=== PATIENT | male | born 1945 | race Caucasian/White ===

== ENCOUNTER 2018-07-03 17:18 | Emergency (ER) | payer MEDICARE ==
[2018-07-03 17:33] VITALS: RESP 18
[2018-07-03 17:46] LABS: Glucose,Whole Blood 104 mg/dL (75-99)
--- NOTE | 2018-07-03 17:58 | ED ---
General Adult HPI - General Chief complaint: Recheck/Abnormal Lab/Rx Stated complaint: Hyperglycemia Source: patient, EMS Mode of arrival: EMS Limitations: no limitations - History of Present Illness Initial comments: Dictation was produced using CSDN dictation software. please excuse any grammatical, word or spelling errors. Chief Complaint: 73-year-old male past medical history of insulin- dependent diabetes mellitus presents with hyperglycemia. History of Present Illness: Patient was at home when his came home found him on the ground. EMS was called. Patient had a blood sugar in the 40s. Patient had issues with his insulin pump since yesterday. He states that he checked his sugar which was 400. Then proceeded to inject insulin from a herrera into his pump. Patient has sensation of chills however denies any fever. Patient otherwise has been at baseline prior to this episode. The ROS documented in this emergency department record has been reviewed and confirmed by me. Those systems with pertinent positive or negative responses have been documented in the HPI. All other systems are other negative and/or noncontributory. - Related Data Home Medications Medication Instructions Recorded Confirmed Atorvastatin [Lipitor] 80 mg PO HS 08/20/16 07/03/18 Enalapril Maleate 10 mg PO BID 08/20/16 07/03/18 Insulin Aspart (For Pump) [NovoLOG 0.01 unit SQ-PUMP CONTINUOUS 08/20/16 (For Pump)] Metoprolol Succinate [Toprol XL] 25 mg PO DAILY 08/20/16 07/03/18 Primidone 50 mg PO TID 08/20/16 07/03/18 Verapamil Sr [Isoptin Sr] 180 mg PO DAILY 08/20/16 07/03/18 Aspirin EC [Ecotrin Low Dose] 81 mg PO DAILY 07/03/18 07/03/18 Cholecalciferol (Vitamin D3) 2,000 unit PO DAILY 07/03/18 07/03/18 [Vitamin D3] Furosemide [Lasix] 20 mg PO DAILY PRN 07/03/18 07/03/18 Meloxicam [Mobic] 7.5 mg PO DAILY 07/03/18 07/03/18 Omeprazole [PriLOSEC] 20 mg PO AC-BRKFST 07/03/18 07/03/18 Allergies Allergy/AdvReac Type Severity Reaction Status Date / Time adhesive tape Allergy Unknown Verified 07/03/18 17:52 Review of Systems ROS Statement: Those systems with pertinent positive or pertinent negative responses have been documented in the HPI. ROS Other: All systems not noted in ROS Statement are negative. Past Medical History Past Medical History: Diabetes Mellitus History of Any Multi-Drug Resistant Organisms: None Reported Past Surgical History: Coronary Bypass/CABG Past Psychological History: No Psychological Hx Reported Smoking Status: Never smoker Past Alcohol Use History: None Reported Past Drug Use History: None Reported General Exam - General Exam Comments Initial Comments: PHYSICAL EXAM: General Impression: Alert and oriented x3, not in acute distress HEENT: Normocephalic atraumatic, extra-ocular movements intact, pupils equal and reactive to light bilaterally, mucous membranes moist. Cardiovascular: Heart regular rate and rhythm, S1&S2 audible, no murmurs, rubs or gallops Chest: Lungs clear to auscultation bilaterally, no rhonchi, no wheeze, no rales Abdomen: Bowel sounds present, abdomen soft, non-tender, non-distended, no organomegaly Musculoskeletal: Pulses present and equal in all extremities, no peripheral edema Motor: Power 5/5 bilaterally, no focal deficits noted Neurological: CN II-XII grossly intact, no focal motor or sensory deficits noted Skin: Intact with no visualized rashes Psych: Normal affect and mood Limitations: no limitations Course Vital Signs 07/03/18 07/03/18 07/03/18 17:26 19:12 20:35 Temperature 93.3 F L 97.2 F L 100.6 F H Pulse Rate 73 85 98 Respiratory 18 18 18 Rate Blood Pressure 172/76 182/87 192/86 O2 Sat by Pulse 100 99 97 Oximetry 07/03/18 07/03/18 21:50 21:54 Temperature 99.1 F Pulse Rate 86 Respiratory 18 Rate Blood Pressure 157/72 O2 Sat by Pulse 96 Oximetry Medical Decision Making - Medical Decision Making ED course: 73-year-old male presents with hypoglycemia. EMS reports that his blood sugar is 46. He did receive supplemental glucose. Repeat blood sugar was in the 100s. Vital signs upon arrival shows findings within acceptable limits. There is strong clinical suspicion that patient administered himself too much insulin. Patient does report feeling chills at this time there is some suspicion that he may have an alternate reason for his hyperglycemia.Laboratory evaluation obtained. Leukocytosis of 14.8 likely secondary to stress. Metabolic panel is unremarkable. Patient's blood sugars have been stabilized. Urinalysis unremarkable. Patient given intravenous fluids. X-rays obtained showing no acute processes. Computed tomography scan of the head and C-spine shows no acute processes. Patient's clinical presentation is consistent with excessive NovoLog. He is then observed in emergency department for several hours with stable medical condition. He does have good social situation. He has a glucometer at home. Patient to be discharged. Told not to inject contents of insulin pen into his insulin pump. - Lab Data Result diagrams: 07/03/18 17:32 07/03/18 17:32 Lab Results 07/03/18 07/03/18 07/03/18 Range/Units 17:25 17:32 17:32 WBC 14.8 H (3.8-10.6) k/uL RBC 4.91 (4.30-5.90) m/uL Hgb 13.5 (13.0-17.5) gm/dL Hct 41.2 (39.0-53.0) % MCV 83.9 (80.0-100.0) fL MCH 27.5 (25.0-35.0) pg MCHC 32.8 (31.0-37.0) g/dL RDW 13.5 (11.5-15.5) % Plt Count 326 (150-450) k/uL Neutrophils % 91 % Lymphocytes % 5 % Monocytes % 4 % Eosinophils % 0 % Basophils % 0 % Neutrophils # 13.5 H (1.3-7.7) k/uL Lymphocytes # 0.7 L (1.0-4.8) k/uL Monocytes # 0.5 (0-1.0) k/uL Eosinophils # 0.0 (0-0.7) k/uL Basophils # 0.0 (0-0.2) k/uL Sodium 137 (137-145) mmol/L Potassium 3.8 (3.5-5.1) mmol/L Chloride 102 (98-107) mmol/L Carbon Dioxide 20 L (22-30) mmol/L Anion Gap 15 mmol/L BUN 27 H (9-20) mg/dL Creatinine 0.86 (0.66-1.25) mg/dL Est GFR (CKD-EPI)AfAm >90 (>60 ml/min/1.73 sqM) Est GFR (CKD-EPI)NonAf 87 (>60 ml/min/1.73 sqM) Glucose 98 (74-99) mg/dL POC Glucose (mg/dL) 104 H (75-99) mg/dL POC Glu Warp Knit Operator Charissa Barajas Calcium 9.0 (8.4-10.2) mg/dL Creatine Kinase (55-170) U/L Urine Color Urine Appearance (Clear) Urine pH (5.0-8.0) Ur Specific Hallam (1.001-1.035) Urine Protein (Negative) Urine Glucose (UA) (Negative) Urine Ketones (Negative) Urine Blood (Negative) Urine Nitrite (Negative) Urine Bilirubin (Negative) Urine Urobilinogen (<2.0) mg/dL Ur Leukocyte Esterase (Negative) Urine RBC (0-5) /hpf Urine WBC (0-5) /hpf Hyaline Casts (0-2) /lpf 07/03/18 07/03/18 07/03/18 Range/Units 17:32 18:42 20:31 WBC (3.8-10.6) k/uL RBC (4.30-5.90) m/uL Hgb (13.0-17.5) gm/dL Hct (39.0-53.0) % MCV (80.0-100.0) fL MCH (25.0-35.0) pg MCHC (31.0-37.0) g/dL RDW (11.5-15.5) % Plt Count (150-450) k/uL Neutrophils % % Lymphocytes % % Monocytes % % Eosinophils % % Basophils % % Neutrophils # (1.3-7.7) k/uL Lymphocytes # (1.0-4.8) k/uL Monocytes # (0-1.0) k/uL Eosinophils # (0-0.7) k/uL Basophils # (0-0.2) k/uL Sodium (137-145) mmol/L Potassium (3.5-5.1) mmol/L Chloride (98-107) mmol/L Carbon Dioxide (22-30) mmol/L Anion Gap mmol/L BUN (9-20) mg/dL Creatinine (0.66-1.25) mg/dL Est GFR (CKD-EPI)AfAm (>60 ml/min/1.73 sqM) Est GFR (CKD-EPI)NonAf (>60 ml/min/1.73 sqM) Glucose (74-99) mg/dL POC Glucose (mg/dL) 81 161 H (75-99) mg/dL POC Glu Warp Knit Operator Ruby Clifford Jalissa Calcium (8.4-10.2) mg/dL Creatine Kinase 108 (55-170) U/L Urine Color Urine Appearance (Clear) Urine pH (5.0-8.0) Ur Specific Hallam (1.001-1.035) Urine Protein (Negative) Urine Glucose (UA) (Negative) Urine Ketones (Negative) Urine Blood (Negative) Urine Nitrite (Negative) Urine Bilirubin (Negative) Urine Urobilinogen (<2.0) mg/dL Ur Leukocyte Esterase (Negative) Urine RBC (0-5) /hpf Urine WBC (0-5) /hpf Hyaline Casts (0-2) /lpf 07/03/18 Range/Units 21:19 WBC (3.8-10.6) k/uL RBC (4.30-5.90) m/uL Hgb (13.0-17.5) gm/dL Hct (39.0-53.0) % MCV (80.0-100.0) fL MCH (25.0-35.0) pg MCHC (31.0-37.0) g/dL RDW (11.5-15.5) % Plt Count (150-450) k/uL Neutrophils % % Lymphocytes % % Monocytes % % Eosinophils % % Basophils % % Neutrophils # (1.3-7.7) k/uL Lymphocytes # (1.0-4.8) k/uL Monocytes # (0-1.0) k/uL Eosinophils # (0-0.7) k/uL Basophils # (0-0.2) k/uL Sodium (137-145) mmol/L Potassium (3.5-5.1) mmol/L Chloride (98-107) mmol/L Carbon Dioxide (22-30) mmol/L Anion Gap mmol/L BUN (9-20) mg/dL Creatinine (0.66-1.25) mg/dL Est GFR (CKD-EPI)AfAm (>60 ml/min/1.73 sqM) Est GFR (CKD-EPI)NonAf (>60 ml/min/1.73 sqM) Glucose (74-99) mg/dL POC Glucose (mg/dL) (75-99) mg/dL POC Glu Warp Knit Operator ID Calcium (8.4-10.2) mg/dL Creatine Kinase (55-170) U/L Urine Color Yellow Urine Appearance Clear (Clear) Urine pH 6.0 (5.0-8.0) Ur Specific Hallam 1.010 (1.001-1.035) Urine Protein 2+ H (Negative) Urine Glucose (UA) 3+ H (Negative) Urine Ketones Trace H (Negative) Urine Blood Negative (Negative) Urine Nitrite Negative (Negative) Urine Bilirubin Negative (Negative) Urine Urobilinogen <2.0 (<2.0) mg/dL Ur Leukocyte Esterase Negative (Negative) Urine RBC <1 (0-5) /hpf Urine WBC 1 (0-5) /hpf Hyaline Casts 1 (0-2) /lpf Disposition Clinical Impression: Hypoglycemia Disposition: HOME SELF-CARE Condition: Good Instructions: What is Insulin (ED) Is patient prescribed a controlled substance at d/c from ED?: No Referrals: Jacqueline Manning III, MD [Primary Care Provider] - 1-2 days Time of Disposition: 22:04
[2018-07-03 18:41] LABS: Basophils % (A) 0 %; Eosinophils % (A) 0 %; HCT 41.2 % (39.0-53.0); HGB 13.5 gm/dL (13.0-17.5); Lymphocytes # (A) 0.7 k/uL (1.0-4.8); Lymphocytes % (A) 5 %; MCH 27.5 pg (25.0-35.0); MCHC 32.8 g/dL (31.0-37.0); MCV 83.9 fL (80.0-100.0); Mean Platelet Volume 7.1; Monocytes # (A) 0.5 k/uL (0-1.0); Monocytes % (A) 4 %; Neutrophils # (A) 13.5 k/uL (1.3-7.7); Neutrophils % (A) 91 %; Platelet Count 326 k/uL (150-450); RBC 4.91 m/uL (4.30-5.90); RDW 13.5 % (11.5-15.5); WBC 14.8 k/uL (3.8-10.6)
[2018-07-03 18:43] LABS: Anion Gap 15 mmol/L; Blood Urea Nitrogen 27 mg/dL (9-20); Carbon Dioxide 20 mmol/L (22-30); Chloride 102 mmol/L (98-107); Glucose 98 mg/dL (74-99); Potassium 3.8 mmol/L (3.5-5.1); Sodium 137 mmol/L (137-145)
--- NOTE | 2018-07-03 19:23 | CT ---
EXAMINATION TYPE: CT brain naun newell DATE OF EXAM: 07/03/2018 COMPARISON: None HISTORY: pain headache. Neck pain. CT DLP: 1349.4 mGycm Automated exposure control for dose reduction was used. TECHNIQUE: CT scan of the head and cervical spine are performed without contrast. FINDINGS: There is cerebral cortical atrophy. There is no mass effect nor midline shift. There is n o sign of intracranial hemorrhage. The calvarium is intact. Cervical vertebra have normal alignment. There is mild spurring of the endplates. Facet joints are in tact. There's multilevel hypertrophic facet arthropathy. The skull base is intact. IMPRESSION: Cerebral atrophy. No acute intracranial abnormality. New mild spondylotic changes in the cervical spi ne. No fracture.
[2018-07-03 19:26] LABS: Glucose,Whole Blood 81 mg/dL (75-99)
--- NOTE | 2018-07-03 19:27 | XR ---
EXAMINATION TYPE: XR chest 2V DATE OF EXAM: 07/03/2018 COMPARISON: NONE HISTORY: Hyperglycemia. Chest pain TECHNIQUE: Frontal and lateral views of the chest are obtained. FINDINGS: Heart and mediastinum are normal. Lungs are clear. Diaphragm is normal. There are sternal wires. There is no pleural effusion. Bony thorax appears intact. IMPRESSION: No active cardiopulmonary disease. Normal heart.
[2018-07-03 20:43] LABS: Glucose,Whole Blood 161 mg/dL (75-99)
[2018-07-03 21:34] LABS: Appearance,Urine Clear (Clear); Bilirubin,Urine Negative (Negative); Blood,Urine Negative (Negative); Color,Urine Yellow; Glucose,Urine (UA) 3+ (Negative); Hyaline Casts,Urine 1 /lpf (0-2); Ketones,Urine Trace (Negative); Leukocyte Esterase,Urine Negative (Negative); Nitrite,Urine Negative (Negative); Protein,Urine 2+ (Negative); RBC,Urine <1 /hpf (0-5); Urobilinogen,Urine <2.0 mg/dL (<2.0); WBC,Urine 1 /hpf (0-5)
[2018-07-03 21:52] VITALS: BP 157/72; PULSE 86
[2018-07-03 21:54] VITALS: TEMP 99.1
== END 2018-07-03 22:11 | disposition home or self-care (01) ==
LOC: EC 17:18
DX: E11.649 Type 2 diabetes mellitus with hypoglycemia without coma (principal); D72.829 Elevated white blood cell count, unspecified; Z79.1 Long term (current) use of non-steroidal anti-inflammatories (NSAID); Z79.4 Long term (current) use of insulin; Z79.82 Long term (current) use of aspirin; Z79.899 Other long term (current) drug therapy; Z91.09 Other allergy status, other than to drugs and biological substances
CPT/HCPCS: 36415; 70450; 71046; 72125; 80048; 81001; 82550; 85025; 87086; 93005; 99285

== ENCOUNTER 2019-10-12 07:17 | Day surgery (SDC) | payer MEDICARE ==
[2019-10-08 13:27] VITALS: BMI 25.8
[~2019-10-12 07:17] MED LIST: LACTATED RINGERS 1,000 ML IV SCH; LIDOCAINE 1% 20 ML VIAL (10MG/ML) FOR IV START INTRADERMA PRN
[2019-10-12 07:44] VITALS: TEMP 98
[2019-10-12 07:46] LABS: Glucose,Whole Blood 156 mg/dL (75-99)
[2019-10-12] MEDS ORDERED: PROPOFOL 10 MG/ML 20 ML VIAL IV ONE (08:05)
--- NOTE | 2019-10-12 08:38 | P.PCN ---
Date of Procedure: 10/12/19 Description of Procedure: BRIEF HISTORY: Patient is a 74-year-old pleasant male scheduled for an elective colonoscopy as a part of screening for malignant neoplasm of the colon. Patient reports last colonoscopy was 5 years ago. Denies any change in bowel habits, blood per rectum or abdominal pain. No family history of colon cancer. PROCEDURE PERFORMED: Colonoscopy. PREOPERATIVE DIAGNOSIS: Screening for malignant neoplasm of the colon. ESTIMATED BLOOD LOSS: Minimal. IV sedation per Anesthesia. PROCEDURE: After informed consent was obtained, the patient, was brought into the endoscopy unit. IV sedation was administered by Anesthesia under continuous monitoring. Digital rectal examination was normal. Initially the Olympus CF-190 flexible video colonoscope was then inserted in the rectum, gradually advanced into the cecum without any difficulty. Careful examination was performed as the scope was gradually being withdrawn. Ileocecal valve and the appendiceal orifice were visualized and appeared normal. Prep was excellent. Mucosa of the cecum, ascending colon, transverse colon, descending colon, sigmoid colon, and rectum appeared normal. A few small scattered sigmoid diverticula noted. The colon was somewhat dilated and redundant otherwise normal. Retroflexion was performed in the rectum and no lesions were seen. The patient tolerated the procedure well. IMPRESSION: Normal-appearing colon from rectum to cecum. Mild sigmoid diverticulosis. RECOMMENDATIONS: Findings of this examination were discussed with the patient and his . Okay to resume diet. Okay to resume medications. Patient can continue screening colonoscopies after the age of 76 if medically stable.
[2019-10-12 08:41] VITALS: RESP 16
[2019-10-12 08:51] VITALS: BP 134/65; PULSE 80
== END 2019-10-12 09:09 | disposition home or self-care (01) ==
LOC: ORWHC2ENDO 07:17
PROVIDERS: ATTEND Internal Medicine
DX: Z12.11 Encounter for screening for malignant neoplasm of colon (principal); K57.30 Diverticulosis of large intestine without perforation or abscess without bleeding; Q43.8 Other specified congenital malformations of intestine; K21.9 Gastro-esophageal reflux disease without esophagitis; Z87.891 Personal history of nicotine dependence; I25.10 Atherosclerotic heart disease of native coronary artery without angina pectoris; I10 Essential (primary) hypertension; E11.9 Type 2 diabetes mellitus without complications; G20 Parkinson's disease; E78.5 Hyperlipidemia, unspecified; Z95.1 Presence of aortocoronary bypass graft; Z98.42 Cataract extraction status, left eye; Z98.41 Cataract extraction status, right eye; Z97.2 Presence of dental prosthetic device (complete) (partial); Z79.1 Long term (current) use of non-steroidal anti-inflammatories (NSAID); Z79.82 Long term (current) use of aspirin; Z79.899 Other long term (current) drug therapy; Z91.09 Other allergy status, other than to drugs and biological substances; Z79.4 Long term (current) use of insulin
CPT/HCPCS: J2704; G0121; 45378

== ENCOUNTER → 2021-01-18 | Outpatient (CLI) | payer MEDICARE ==
--- NOTE | 2021-01-18 16:11 | MR ---
EXAMINATION TYPE: MR lumbar spine wo con DATE OF EXAM: 01/18/2021 COMPARISON: Prior lumbar MRI 06/07/2015 HISTORY: LOWER BACK PAIN ABOUT HIP LEVEL, INTO BOTH HIPS AND THIGHS TECHNIQUE: Multiplanar, multisequence images of the lumbar spine were acquired. L1-L2: Posterior disc bulge causes slight anterior mass effect on the thecal sac. No significant spin al stenosis or foraminal encroachment. L2-L3: There is a posterior broad-based disc bulge causing anterior mass effect on the thecal sac. Ci rcumferential extension endplate disc complex is noted. There is moderate spinal stenosis, facet arth ropathy with hypertrophic changes causing posterior lateral mass effect on the thecal sac is noted. T his is progressed in the interval. L3-L4: Posterior broad-based disc bulge is again noted causing slight anterior mass effect on the the vane sac. No significant foraminal encroachment. There is facet arthropathy change. L4-L5: Posterior disc herniation is again noted showing anterior mass effect on the thecal sac, there is some slight improvement, slight reduction in the size of the disc herniation and reduction in the mass effect on the thecal sac. There is facet arthropathy change present. No significant foraminal e ncroachment. Spinal stenosis is similar to prior exam. L5-S1: Normal disc appearance without desiccation. No herniation, protrusion or disc bulging. No ca nal stenosis is present. Foramina are patent bilaterally. Suspect a transitional vertebral body is p resent at L5. There is facet arthropathy change. Lumbar segments are intact. No paraspinal masses are identified. Conus medullaris has a normal appe arance. Lumbar vertebral bodies show stable height, alignment, and bone marrow signal, is multilevel spondylosis, endplate discogenic marrow signal change and Schmorl's node formation. There is a mild spinal curvature as on prior exam. Loss of disc signal is compatible disc desiccation, there is loss of disc height similar to prior exam. IMPRESSION: Degenerative disc disease with disc herniation improving mildly at L4-5 and progressing causing some spinal stenosis at L2-3.
== END ==
LOC: RADMRIMAIN 09:39
PROVIDERS: ATTEND Family Medicine
DX: M51.26 Other intervertebral disc displacement, lumbar region (principal); M48.061 Spinal stenosis, lumbar region without neurogenic claudication; M51.36 Other intervertebral disc degeneration, lumbar region
CPT/HCPCS: 72148

== ENCOUNTER → 2021-03-01 | Outpatient (CLI) | payer MEDICARE ==
--- NOTE | 2021-03-02 07:47 | MR ---
EXAMINATION TYPE: MR naun/betty wo con DATE OF EXAM: 03/01/2021 COMPARISON: None HISTORY: Neck and back pain, BLE radiculopathy x 2 months. CONTRAST: None TECHNIQUE: Multiplanar multiecho imaging on a 3.0 Candi magnet is performed through the cervical spin e. FINDINGS: The craniovertebral junction is normal. Vertebral body alignment is normal. Disc desicca tion is present throughout the cervical spine. Mild narrowing of the disc heights may be present. C7-T1: No focal disc herniation or significant disc bulge is evident. No spinal canal stenosis or n eural foraminal stenosis is present. C6-7: Broad-based disc bulge is present with anterior thecal sac flattening. No cord contact is evide nt. No spinal canal stenosis present. Mild uncovertebral joint hypertrophy is present.. C5-6: Broad-based disc bulge is present with anterior thecal sac contact. No cord contact is evident. No spinal canal stenosis is present. There is some mild uncovertebral joint hypertrophy with mild fo raminal narrowing greater on the left. C4-5: Broad-based disc bulge is moderate anterior thecal sac compression. This may has some mild cord contact. Cord deformity is not evident. No spinal canal stenosis or neural foraminal stenosis is pre sent.. C3-4: Broad-based disc bulge is moderate anterior thecal sac compression. No cord contact or cord def ormity is evident. No spinal canal stenosis is present. Uncovertebral joint hypertrophy has mild righ t foraminal narrowing.. C2-3: No focal disc herniation or significant disc bulge is evident. No spinal canal stenosis or daniela ral foraminal stenosis is present. IMPRESSIONS: 1. Diffuse broad-based disc bulging through the cervical spine. This appears greatest at C3-4 with so me moderate anterior thecal sac impression. No spinal canal stenosis is evident. 2. Uncovertebral joint hypertrophy with mild foraminal narrowing on the left at C5-6 and on the right at C3-4. EXAMINATION TYPE: MR naun/betty wo con DATE OF EXAM: 03/01/2021 COMPARISON: None HISTORY: Neck and back pain, BLE radiculopathy x 2 months. CONTRAST: None TECHNIQUE: Multiplanar, multiecho imaging on a 3.0 Candi magnet is performed through the thoracic spi ne. Spinal cord maintains normal signal through its visualized course. Vertebral body alignment is normal. Vertebral body heights are preserved. Disc heights are preserved. There is a Schmorl's node at T11 superior endplate. Diffuse disc desiccation is present. No spinal canal stenosis is evident. IMPRESSIONS: 1. No spinal canal stenosis.
== END | disposition home or self-care (01) ==
LOC: RADMRIMAIN 11:38
PROVIDERS: ATTEND Orthopaedic Surgery
DX: M54.13 Radiculopathy, cervicothoracic region (principal)
CPT/HCPCS: 72141; 72146

== ENCOUNTER 2021-04-17 07:56 | Day surgery (SDC) | payer MEDICARE ==
[2021-04-12 15:24] VITALS: BMI 25.8
[~2021-04-17 07:56] MED LIST changes: -LIDOCAINE 1% 20 ML VIAL (10MG/ML) FOR IV START INTRADERMA PRN
[2021-04-17 08:23] LABS: Glucose,Whole Blood 150 mg/dL (75-99)
[2021-04-17 08:24] VITALS: TEMP 97
[2021-04-17] MEDS ORDERED: methylPREDNISolone ACETATE 40 MG/ML 1 ML VIAL ONE (08:24)
[2021-04-17] MEDS ORDERED: IOPAMIDOL M200 10 ML VIAL ONE (08:24)
--- NOTE | 2021-04-17 08:44 | P.PCN ---
Date of Procedure: 04/17/21 Procedure(s) Performed: PREOPERATIVE DIAGNOSIS:1- Lumbar radiculopathy . 2-Lumbar spondylosis with lumbar facet arthropathy. 3-lumbar degenerative disc disease POSTOPERATIVE DIAGNOSIS: Same as preoperative diagnoses. PROCEDURE 1. Transforaminal epidural steroid injection under fluoroscopic guidance at Bilaterla L5-S1 level. (Fluoroscopy images stored on file in the radiology Department ) 2. Lumbar epidurogram . ANESTHESIA: Local with 1% lidocaine 4 ml only . EBL: Minimal PROCEDURE INDICATION: The patient with low back pain and radiculopathy symptoms unresponsive to conservative treatment. PROCEDURE DESCRIPTION / TECHNIQUE: The patient was seen and identified in the preoperative area. Risks, benefits, complications, and alternatives were discussed with the patient. The patient agreed to proceed with the procedure and signed the consent. IV was started, and vital signs were stable. Patient was taken to the OR and time out was completed. The patient was placed in the prone position on procedure table and a pillow was placed under the abdomen to reduce lumbar lordosis. The lumbosacral area was prepped and draped in the usual sterile fashion. Critical pause was taken. Vital signs were closely monitored during the procedure. Using oblique fluoroscopy, the chin of the ``Wing dog at right L5-S1 level was identified, and the skin and deeper tissues just below was localized with 1% lidocaine. Subsequently, a 22-gauge 3.5-inch spinal needle was advanced under a tunneled view fluoroscopic guidance just underneath the chin of the ``Wing dog at the right L5-S1 Under lateral fluoroscopy, the needle was then advanced to the posterior border of the interforaminal space. After negative aspiration of CSF and blood and with no paresthesias, 1 mL Isovue 200 contrast dye was injected excellent epidurogram and outlining of the nerve root Subsequently, 3 mL of block solution containing 20 mg Depo-Medrol and 2 mL of 0.9% normal saline PF was injected. Needle was removed and the same procedure was repeated at the left L5-S1 level (s). At the end of the procedure, skin was cleansed, and bandages were applied. COMPLICATIONS:none DISPOSITION / PLANS: The patient was placed in a supine position and transferred to the recovery area in a stable condition for observation. There was no evidence of lower extremity motor or sensory deficit after the procedure. Patient was discharged from the recovery room after meeting discharge criteria. Home discharge instructions were given to the patient by the staff. The patient was reexamined prior to discharge.
[2021-04-17 09:00] VITALS: BP 160/75; PULSE 72; RESP 16
--- NOTE | 2021-04-17 09:24 | FL ---
EXAMINATION TYPE: FL guided pain mgmt statistic DATE OF EXAM: 04/17/2021 HISTORY: Fluoroscopy time 15 seconds of fluoroscopy provided. IMPRESSION: 1. Fluoroscopy time.
== END 2021-04-17 09:14 | disposition home or self-care (01) ==
LOC: ORPAIN 07:56
PROVIDERS: ATTEND Specialist
DX: M51.16 Intervertebral disc disorders with radiculopathy, lumbar region (principal); M47.816 Spondylosis without myelopathy or radiculopathy, lumbar region; M54.5 Low back pain; E11.9 Type 2 diabetes mellitus without complications
CPT/HCPCS: 64483; J1030; Q9966

== ENCOUNTER → 2021-05-07 | Outpatient (CLI) | payer MEDICARE ==
[2021-05-07 12:52] VITALS: BP 193/77; PULSE 75; RESP 16; TEMP 98.1
--- NOTE | 2021-05-07 12:58 | P.PN ---
Subjective Progress Note Date: 05/07/21 This is a follow-up visit for this 76 years old male with a chronic history of severe low back pain with radiation to the lower extremity, they) with lumbar radiculopathy lumbar degenerative disc disease and lumbar spondylosis with lumbar facet arthropathy, recently we have done a transforaminal epidural s teroid injection at L5-S1 bilaterally patient gets excellent pain relief for a few weeks, and his ability to function and move improved significantly, currently is complaining of severe low back pain with radiation to the lower extremity bilaterally he denies any motor or sensory deficit he is able to ambulate, denies any fever or night sweats he denies any change in bowel movement or urination. Denies any motor or sensory deficit Objective - Exam Physical Examinations : -Constitutiona : Cooperative , not in acute distress . -HEENT : nech : supple , no Lymphadenopathy , normal thyroid size . : eyes : no ptosis , no icterus, no photophobia . - neurologic : Cranial nerve II to XII intact , no focal neurological deffecit . -psychatric : alert , oriented X 3 , appropriate affect , intact judgment and insight . -Lymphatic : no Lymphadenopathy . - musculoskeltal : Lumber spine moter stegnth lower extremities ,thigh and legs 5/5 Right side , 5/5 Left side deep tendon reflexes : normal Knee Jerk , normal ankle Jerk lumber facet Loading Test =positive Right , positive Left Range of motion of the lumbar spine Flexion 30 degrees, extension 10 degrees strait leg raising test = positive at 30 degree Fabere test= positive Right , and positive LT . tenderness over the Sacroiliac joint on the Right , and Left sides Assessment and Plan Plan: Assessment and plan=1-lumbar radiculopathy. 2-lumbar degenerative disc disease. 3-lumbar spondylosis with lumbar facet arthrop athy. 4-hypertension, Checked the blood pressure today on the right and once to and in the left arm was 193/77, I explained to the patient and his dangers of ignoring high blood pressure, I explained to him that he needs to take care of it TANESHA patient will follow up with his primary care today , after he leaves the clinic he will follow up with his primary care, also in the future we can schedule patient for repeat transforaminal epidural steroid injection at L5-S1 bilaterally. - PQRS measures = - Patient's medications are documented in the chart. -Tobacco use is negative and counseling.Given. -Patient's has not received pneumococcal vaccine. -Advanced care planning discussed, patient not eligible. -Opiate contract not signed. -Pain positive and follow-up visit/procedure is scheduled. -Patient's blood pressure measured [193/77 ] , and documented in the record ,and patient will follow up with the primary care. -Patient's weight was measured and body mass index [ ] within the normal limits and counseling was done. and patient instructed to follow-up with the primary care physician. -Patient was not identified as an unhealthy alcohol user Time with Patient: Less than 30
== END ==
LOC: PNWHC3 12:29
PROVIDERS: ATTEND Specialist
DX: M47.26 Other spondylosis with radiculopathy, lumbar region (principal); M51.16 Intervertebral disc disorders with radiculopathy, lumbar region; I10 Essential (primary) hypertension; Z91.048 Other nonmedicinal substance allergy status; Z87.891 Personal history of nicotine dependence
CPT/HCPCS: 99211

== ENCOUNTER 2021-05-29 07:27 | Day surgery (SDC) | payer MEDICARE ==
[2021-05-28 11:26] VITALS: BMI 26.2
[2021-05-29 08:15] VITALS: RESP 16; TEMP 97.6
[2021-05-29 08:23] LABS: Glucose,Whole Blood 126 mg/dL (75-99)
[2021-05-29] MEDS ORDERED: LACTATED RINGERS 1,000 ML IV ONE (08:23)
[2021-05-29] MEDS ORDERED: MIDAZOLAM 2 MG/2 ML VIAL ONE (08:43)
[2021-05-29] MEDS ORDERED: fentaNYL (PF) 50 MCG/ML 2 ML AMP ONE (08:43)
[2021-05-29] MEDS ORDERED: DEXAMETHASONE SOD PHOSPHATE 10 MG/ML 1 ML VIAL ONE (08:43)
[2021-05-29] MEDS ORDERED: LIDOCAINE 1% INJ 10MG/ML (20 ML MDV) ONE (08:43)
[2021-05-29] MEDS ORDERED: IOPAMIDOL M200 10 ML VIAL ONE (08:43)
--- NOTE | 2021-05-29 09:09 | P.PCN ---
Date of Procedure: 05/29/21 Surgeon: Junaid Campos Pathology: none sent Condition: stable Disposition: PACU Description of Procedure: PREOPERATIVE DIAGNOSIS: Lumbar radiculopathy POSTOPERATIVE DIAGNOSIS: Lumbar radiculopathy PROCEDURE 1. Transforaminal epidural steroid injection under fluoroscopic guidance at L5- S1 level bilaterally 2. Lumbar epidurogram. SURGEON: Junaid Campos MD ANESTHESIA: Local with 1% lidocaine; IV sedation with Versed and fentanyl. EBL: Minimal PROCEDURE INDICATION: The patient with low back pain and radiculopathy symptoms unresponsive to conservative treatment. PROCEDURE DESCRIPTION / TECHNIQUE: The patient was seen and identified in the preoperative area. Risks, benefits, complications, and alternatives were discussed with the patient. The patient agreed to proceed with the procedure and signed the consent. IV was started, and vital signs were stable. Patient was taken to the OR and time out was completed. The patient was placed in the prone position on procedure table and a pillow was placed under the abdomen to reduce lumbar lordosis. The lumbosacral area was prepped and draped in the usual sterile fashion. Critical pause was taken. Vital signs were closely monitored during the procedure. Conscious sedation was used during the procedure to decrease patients anxiety. The vertebral body of the lumbar vertebra L5 was squared off by tilting the C-arm cephalad then the C-arm was tilted to the right oblique position and the target point was at the 6 o'clock position of the pedicle of L5 then skin and deeper tissues were localized with 1% lidocaine. Subsequently, a 22-gauge 3.5-inch spinal needle was advanced under a tunneled view fluoroscopic guidance just underneath the chin of the Wing dog at the . Under lateral fluoroscopy, the needle was then advanced to the middle of the upper one third of the foramen between( L5-S1). After negative aspiration of CSF and blood and with no paresthesias, 1 mL of omnipaque contrast dye was injected excellent epidurogram and outlining of the L nerve root was identified. Subsequently, 2 mL of block solution containing 5 mg of Decadron and 1.5 mL of Lidocaine 1% PF was injected. The procedure was repeated in the same manner on the left side. Needle was removed intact . At the end of the procedure, skin was cleansed, and bandages were applied. I had some difficulty doing the left side of this procedure due to bone spurs. The patient may have more benefit from an interlaminar epidural steroid injection next time. COMPLICATIONS: None COMMENTS: DISPOSITION / PLANS: The patient was placed in a supine position and transferred to the recovery area in a stable condition for observation. There was no evidence of lower extremity motor or sensory deficit after the procedure. Patient was discharged from the recovery room after meeting discharge criteria. Home discharge instructions were given to the patient by the staff.
[2021-05-29] MEDS ORDERED: IV FLUID CONTINUATION 1,000 ML IV ONE (09:14)
[2021-05-29 09:34] VITALS: BP 148/72; PULSE 74
--- NOTE | 2021-05-29 10:49 | FL ---
Fluoroscopy HISTORY: Pain 24 seconds fluoroscopy time supplied to the referring clinician. 3 intraoperative C-arm images docum ent the procedure. See dictated report from anesthesia.
== END 2021-05-29 09:45 | disposition home or self-care (01) ==
LOC: ORPAIN 07:27
PROVIDERS: ATTEND Anesthesiology
DX: M54.16 Radiculopathy, lumbar region (principal); I10 Essential (primary) hypertension; E11.9 Type 2 diabetes mellitus without complications; I25.10 Atherosclerotic heart disease of native coronary artery without angina pectoris; Z79.4 Long term (current) use of insulin; Z96.41 Presence of insulin pump (external) (internal); Z79.82 Long term (current) use of aspirin; Z91.09 Other allergy status, other than to drugs and biological substances
CPT/HCPCS: 64483; J2250; J1100; J2001; J3010; Q9966; 99152

== ENCOUNTER → 2021-06-27 | Outpatient (CLI) | payer MEDICARE ==
[2021-06-27 12:33] VITALS: BP 181/66; PULSE 67; RESP 18; TEMP 97.9
--- NOTE | 2021-06-27 13:03 | P.PN ---
Subjective Progress Note Date: 06/27/21 This is a follow-up visit for this 76 years old male with a chronic history of severe low back pain with radiation to the lower extremity, he is Diagnosed with lumbar radiculopathy, lumbar degenerative disc disease ,and lumbar spondylosis with lumbar facet arthropathy, previously we have done a transforaminal epidural steroid injection at L5-S1 bilaterally x2 ,patient gets excellent pain relief after the first for a few weeks, and his ability to function and move improved significantly, patient reported that he had no benefit after the second injection , currently is complaining of severe low back pain with radiation to the lower extremity bilaterally he denies any motor or sensory deficit he is able to ambulate, denies any fever or night sweats he denies any change in bowel movement or urination. Denies any motor or sensory deficit Objective - Exam Physical Examinations : -Constitutiona : Cooperative , not in acute distress . -HEENT : nech : supple , no Lymphadenopathy , normal thyroid size . : eyes : no ptosis , no icterus, no photophobia . - neurologic : Cranial nerve II to XII intact , no focal neurological deffecit . -psychatric : alert , oriented X 3 , appropriate affect , intact judgment and insight . -Lymphatic : no Lymphadenopathy . - musculoskeltal : Lumber spine moter stegnth lower extremities ,thigh and legs 5/5 Right side , 5/5 Left side deep tendon reflexes : normal Knee Jerk , normal ankle Jerk lumber facet Loading Test =positive Right , positive Left Range of motion of the lumbar spine Flexion 30 degrees, extension 10 degrees strait leg raising test = positive at 30 degree Fabere test= positive Right , and positive LT . tenderness over the Sacroiliac joint on the Right , and Left sides Assessment and plan=1-lumbar radiculopathy. 2-lumbar degenerative disc disease. 3-lumbar spondylosis with lumbar facet arthropathy. patient could benefit from repeat transforaminal epidural steroid injection at L5-S1 bilaterally. - PQRS measures = - Patient's medications are documented in the chart. -Tobacco use is negative and counseling.Given. -Patient's has not received pneumococcal vaccine. -Advanced care planning discussed, patient not eligible. -Opiate contract not signed. -Pain positive and follow-up visit/procedure is scheduled. -Patient's blood pressure measured [181/66 ] , and documented in the record ,and patient will follow up with the primary care. -Patient's weight was measured and body mass index [26.3 ] above the normal limits and counseling was done. and patient instructed to follow-up with the primary care physician. -Patient was not identified as an unhealthy alcohol user Objective - Vital Signs Vital signs: Vital Signs Temp 97.9 F 06/27/21 12:32 Pulse 67 06/27/21 12:32 Resp 18 06/27/21 12:32 BP 181/66 06/27/21 12:32 Pulse Ox 67 L 06/27/21 12:32
== END ==
LOC: PNWHC3 12:06
PROVIDERS: ATTEND Specialist
DX: M51.16 Intervertebral disc disorders with radiculopathy, lumbar region (principal); M47.26 Other spondylosis with radiculopathy, lumbar region; Z91.048 Other nonmedicinal substance allergy status; Z87.891 Personal history of nicotine dependence
CPT/HCPCS: 99211

== ENCOUNTER 2021-08-09 08:12 | Day surgery (SDC) | payer MEDICARE ==
[2021-08-07 16:16] VITALS: BMI 26.2
[2021-08-09 08:45] VITALS: TEMP 97.5
[2021-08-09] MEDS ORDERED: methylPREDNISolone ACETATE 40 MG/ML 1 ML VIAL ONE (09:19)
[2021-08-09] MEDS ORDERED: IOPAMIDOL M200 10 ML VIAL ONE (09:19)
--- NOTE | 2021-08-09 09:44 | P.PCN ---
Date of Procedure: 08/09/21 Procedure(s) Performed: PREOPERATIVE DIAGNOSIS:1- Lumbar radiculopathy . 2-Lumbar spondylosis with lumbar facet arthropathy. 3-lumbar degenerative disc disease POSTOPERATIVE DIAGNOSIS: Same as preoperative diagnoses. PROCEDURE 1. Transforaminal epidural steroid injection under fluoroscopic guidance at [place] L5-S1 level. (Fluoroscopy images stored on file in the radiology Department ) 2. Lumbar epidurogram . ANESTHESIA: Local with 1% lidocaine 4 ml only . EBL: Minimal PROCEDURE INDICATION: The patient with low back pain and radiculopathy symptoms unresponsive to conservative treatment. PROCEDURE DESCRIPTION / TECHNIQUE: The patient was seen and identified in the preoperative area. Risks, benefits, complications, and alternatives were discussed with the patient. The patient agreed to proceed with the procedure and signed the consent. IV was started, and vital signs were stable. Patient was taken to the OR and time out was completed. The patient was placed in the prone position on procedure table and a pillow was placed under the abdomen to reduce lumbar lordosis. The lumbosacral area was prepped and draped in the usual sterile fashion. Critical pause was taken. Vital signs were closely monitored during the procedure. Using oblique fluoroscopy, the chin of the ``Wing dog at right L5-S1 level was identified, and the skin and deeper tissues just below was localized with 1% lidocaine. Subsequently, a 22-gauge 3.5-inch spinal needle was advanced under a tunneled view fluoroscopic guidance just underneath the chin of the ``Wing dog at the right L5-S1 Under lateral fluoroscopy, the needle was then advanced to the posterior border of the interforaminal space. After negative aspiration of CSF and blood and with no paresthesias, 1 mL Isovue 200 contrast dye was injected excellent epidurogram and outlining of the nerve root Subsequently, 3 mL of block solution containing 20 mg Depo-Medrol and 2 mL of 0.9% normal saline PF was injected. Needle was removed and the same procedure was repeated at the left L5-S1 level. At the end of the procedure, skin was cleansed, and bandages were applied. COMPLICATIONS:none DISPOSITION / PLANS: The patient was placed in a supine position and transferred to the recovery area in a stable condition for observation. There was no evidence of lower extremity motor or sensory deficit after the procedure. Patient was discharged from the recovery room after meeting discharge criteria. Home discharge instructions were given to the patient by the staff. The patient was reexamined prior to discharge.
[2021-08-09 09:51] VITALS: PULSE 82; RESP 16
[2021-08-09 09:58] VITALS: BP 147/69
[2021-08-09] MEDS ORDERED: LACTATED RINGERS 1,000 ML IV SCH (10:08)
--- NOTE | 2021-08-09 10:20 | FL ---
Fluoroscopy History: TRANSFORAMINAL STEROID INJ L5 KRISTIN TRANSFORAMINAL. FL TIME 8 SECS
== END 2021-08-09 10:16 | disposition home or self-care (01) ==
LOC: ORPAIN 08:12
PROVIDERS: ATTEND Specialist
DX: M47.26 Other spondylosis with radiculopathy, lumbar region (principal); M51.16 Intervertebral disc disorders with radiculopathy, lumbar region
CPT/HCPCS: 64483; J1030; Q9966

== ENCOUNTER 2023-03-11 10:20 | Day surgery (SDC) | payer MEDICARE ==
[~2023-03-11 10:20] MED LIST changes: +ACETAMINOPHEN TAB 500 MG TAB PO PRN; +DEXAMETHASONE SOD PHOSPHATE 4 MG/ML 1 ML VIAL IV ONE; +HEPARIN SODIUM,PORCINE/PF 5,000 UNIT/0.5 ML SYRINGE SQ PRN; +ONDANSETRON 4 MG/2 ML VIAL IVP ONE; +fentaNYL (PF) 50 MCG/ML 2 ML AMP IV PRN
[2023-03-11 11:06] LABS: Glucose,Whole Blood 166 mg/dL (70-110)
--- NOTE | 2023-03-11 11:13 | P.GSHP ---
History of Present Illness H&P Date: 03/11/23 Chief Complaint: Incarcerated Incisional hernia 77-year-old male here today for elective repair incisional hernia. Feels a bump there. Increasing in size. Painful at times. Past Medical History Past Medical History: Coronary Artery Disease (CAD), Diabetes Mellitus, GERD/Reflux, Hearing Disorder / Deafness, Hypertension, Myocardial Infarction (MD), Osteoarthritis (OA), Sleep Apnea/CPAP/BIPAP Additional Past Medical History / Comment(s): Parkinsons, MD X2, insulin pump, not using CPAP, irregular bowel movements, Last Myocardial Infarction Date:: 1992 History of Any Multi-Drug Resistant Organisms: None Reported Past Surgical History: Appendectomy, Coronary Bypass/CABG, Heart Catheterization, Tonsillectomy Additional Past Surgical History / Comment(s): CABG 1992, bilateral cataracts, bilateral laser eye surgery, pain clinic procedures. Past Anesthesia/Blood Transfusion Reactions: No Reported Reaction Smoking Status: Former smoker - Past Family History Brother(s) Family Medical History: Cancer Medications and Allergies Home Medications Medication Instructions Recorded Confirmed Type Atorvastatin [Lipitor] 80 mg PO DAILY 08/20/16 03/11/23 History Insulin Aspart (For Pump) [NovoLOG 1 applicate SQ-PUMP CONTINUOUS 08/20/16 03/11/23 History (For Pump)] Metoprolol Succinate [Toprol XL] 25 mg PO DAILY 08/20/16 03/11/23 History Primidone 50 mg PO TID 08/20/16 03/11/23 History Verapamil Sr [Isoptin Sr] 180 mg PO DAILY 08/20/16 03/11/23 History Aspirin EC [Ecotrin Low Dose] 81 mg PO DAILY 07/03/18 03/05/23 History Cholecalciferol (Vitamin D3) 2,000 units PO DAILY 07/03/18 03/11/23 History [Vitamin D3] Omeprazole [PriLOSEC] 20 mg PO DAILY 07/03/18 03/11/23 History Carbidopa/Levodopa [Sinemet 10-100 1 each PO TID 10/08/19 03/11/23 History mg] Cannabidiol (Cbd) [Epidiolex] 1 dose PO QAM 04/12/21 03/11/23 History hydroCHLOROthiazide 25 mg PO QAM 04/12/21 03/11/23 History Enalapril Maleate [Vasotec] 20 mg PO BID 05/28/21 03/11/23 History L.acidoph,Paracasei, B.lactis 1 each PO DAILY 06/25/21 03/11/23 History [Probiotic] Calcium(Unknown) 1 tab PO DAILY 03/05/23 03/11/23 History Magnesium (Unknown) 1 tab PO DAILY 03/05/23 03/11/23 History Vit C (Unknown) 1 tab PO DAILY 03/05/23 03/11/23 History Allergies Allergy/AdvReac Type Severity Reaction Status Date / Time adhesive tape Allergy peels skin Verified 03/05/23 13:41 off Surgical - Exam Vital Signs Temp Pulse Resp BP Pulse Ox 98 F 87 20 148/69 98 03/11/23 10:53 03/11/23 10:53 03/11/23 10:53 03/11/23 10:53 03/11/23 10:53 Physical exam: General: Well-developed, well-nourished HEENT: Normocephalic, sclerae nonicteric Abdomen: Nontender, nondistended, previous sternotomy scar, small incarcerated hernia at lower aspect of incision Extremities: No edema Neuro: Alert and oriented Results - Labs Abnormal Lab Results - Last 24 Hours (Table) 03/11/23 Range/Units 11:03 POC Glucose (mg/dL) 166 H (70-110) mg/dL Assessment and Plan (1) Incarcerated incisional hernia Narrative/Plan: 77-year-old male with incarcerated incisional hernia. Open repair with mesh at this time. Risks of bleeding, infection, recurrence, bladder and bowel injury, numbness, nerve injury were discussed with the patient. The patient understands and wishes to proceed. Current Visit: Yes Status: Acute Code(s): K43.0 - INCISIONAL HERNIA WITH OBSTRUCTION, WITHOUT GANGRENE SNOMED Code(s): 400187370
[2023-03-11 11:40] LABS: Basophils % (A) 0 %; Eosinophils # (A) 0.2 k/uL (0-0.7); Eosinophils % (A) 3 %; HCT 36.2 % (39.0-53.0); HGB 12.2 gm/dL (13.0-17.5); Lymphocytes # (A) 1.2 k/uL (1.0-4.8); Lymphocytes % (A) 15 %; MCH 28.3 pg (25.0-35.0); MCHC 33.6 g/dL (31.0-37.0); MCV 84.2 fL (80.0-100.0); Mean Platelet Volume 7.9; Monocytes # (A) 0.5 k/uL (0-1.0); Monocytes % (A) 6 %; Neutrophils # (A) 5.9 k/uL (1.3-7.7); Neutrophils % (A) 73 %; Platelet Count 327 k/uL (150-450); RDW 13.9 % (11.5-15.5); WBC 8.1 k/uL (3.8-10.6)
[2023-03-11] MEDS ORDERED: LIDOCAINE 2% INJ 20 MG/ML (2 ML VIAL) ONE (12:01)
[2023-03-11] MEDS ORDERED: BUPIVACAINE (PF) 0.25% 30 ML VIAL SQ ONE (12:01)
[2023-03-11] MEDS ORDERED: MIDAZOLAM 2 MG/2 ML VIAL ONE (12:01)
[2023-03-11] MEDS ORDERED: ROCURONIUM 10 MG/ML (5 ML VIAL) IV ONE (12:01)
[2023-03-11] MEDS ORDERED: GLYCOPYRROLATE 0.2 MG/ML 2 ML VIAL ONE (12:01)
[2023-03-11] MEDS ORDERED: PROPOFOL 10 MG/ML 20 ML VIAL IV ONE (12:01)
[2023-03-11] MEDS ORDERED: fentaNYL (PF) 50 MCG/ML 2 ML AMP ONE (12:01)
[2023-03-11] MEDS ORDERED: NEOSTIGMINE 1 MG/ML 10 ML VIAL ONE (12:01)
[2023-03-11] MEDS ORDERED: KETOROLAC 15 MG/ML 1 ML VIAL ONE (12:01)
[2023-03-11] MEDS ORDERED: LACTATED RINGERS 1,000 ML IV ONE (12:56)
[2023-03-11 13:18] VITALS: RESP 16; TEMP 97
[2023-03-11] MEDS ORDERED: traMADol 50 MG TAB PO STA (13:26)
[2023-03-11] MEDS ORDERED: ACETAMINOPHEN TAB 325 MG TAB PO SCH (13:30)
--- NOTE | 2023-03-11 13:30 | P.OP ---
Date of Procedure: 03/11/23 Procedure(s) Performed: PREOPERATIVE DIAGNOSIS: Incarcerated incisional hernia POSTOPERATIVE DIAGNOSIS: Same PROCEDURE: Open repair incarcerated incisional hernia with mesh SURGEON: Dr. Bird ANESTHESIA: General OPERATIVE PROCEDURE DETAILS: Patient placed on the operating table in the supine position. Abdomen was prepped and draped in usual sterile fashion. The previous incision was re-incised and lengthened inferiorly. This was present in the epigastric region. Dissection through the subcutaneous tissues took place using electrocautery. A single incarcerated hernia was identified. The hernia sac was carefully dissected down to the level of the fascia where it was excised. The patient had a single defect measuring 1.5 x 1 cm. The 4.3 cm ventral X mesh was placed beneath the fascia and sutured to the fascia using trans-fascial 0 Ethibond sutures. Following that the midline fascia was r eapproximated horizontally using interrupted mattress 0 Ethibond sutures. The subcutaneous tissues were closed using 3-0 Vicryl sutures. The skin was closed using running 4-0 Monocryl suture. Sterile dressings were applied. HERNIA CHARACTERISTICS: Length: 1.5 cm Width: 1 cm Type: Incisional incarcerated TYPE OF MESH USED: 4.3 cm ventral X LOCATION OF MESH: Sub-lay FIXATION: Trans-fascial 0 Ethibond PREOPERATIVE DISCUSSION ON SMOKING CESSASTION: Yes PREOPERATIVE DISCUSSION ON MORBID OBESITY: Yes PREOPERATIVE DISCUSSION ON APPROPRIATE USE OF NARCOTIC USE: Yes PREOPERATIVE EDUCATION: Multi Modal, Smoking Cessation and Weight Loss with BMI over 35. DISPOSITION: Stable to recovery room
[2023-03-11] MEDS ORDERED: traMADol 50 MG TAB PO ONE (14:08)
[2023-03-11 15:04] VITALS: BP 169/69; PULSE 59
[2023-03-11] MEDS ORDERED: IBUPROFEN 600 MG TAB PO SCH (16:30)
== END 2023-03-11 16:03 | disposition home or self-care (01) ==
LOC: OR 10:20
PROVIDERS: ATTEND Surgery
DX: K43.0 Incisional hernia with obstruction, without gangrene (principal); I25.10 Atherosclerotic heart disease of native coronary artery without angina pectoris; E11.9 Type 2 diabetes mellitus without complications; K21.9 Gastro-esophageal reflux disease without esophagitis; H91.90 Unspecified hearing loss, unspecified ear; I10 Essential (primary) hypertension; I25.2 Old myocardial infarction; M19.90 Unspecified osteoarthritis, unspecified site; G47.33 Obstructive sleep apnea (adult) (pediatric); G20 Parkinson's disease; Z90.89 Acquired absence of other organs; Z90.49 Acquired absence of other specified parts of digestive tract; Z95.5 Presence of coronary angioplasty implant and graft; Z95.1 Presence of aortocoronary bypass graft; Z98.890 Other specified postprocedural states; Z98.41 Cataract extraction status, right eye; Z98.42 Cataract extraction status, left eye; Z87.891 Personal history of nicotine dependence; Z79.4 Long term (current) use of insulin; Z79.82 Long term (current) use of aspirin; Z79.899 Other long term (current) drug therapy; Z91.048 Other nonmedicinal substance allergy status
CPT/HCPCS: 84132; 85025; 88302; 49594; C1781; J2250; J1100; J2710; J0690; J2405; J3010; J1885; J2704; J1644; J2001

== ENCOUNTER 2023-07-01 05:40 | Day surgery (SDC) | payer MEDICARE ==
[2023-06-23 13:52] VITALS: BMI 24.3
[2023-07-01] MEDS ORDERED: LACTATED RINGERS 1,000 ML IV ONE (06:40)
[2023-07-01 06:46] LABS: Glucose,Whole Blood 192 mg/dL (70-110)
[2023-07-01 07:16] VITALS: TEMP 98
[2023-07-01] MEDS ORDERED: PROPOFOL 10 MG/ML 20 ML VIAL IV ONE (07:19)
[2023-07-01] MEDS ORDERED: LIDOCAINE 2% INJ 20 MG/ML (2 ML VIAL) ONE (07:19)
[2023-07-01] MEDS ORDERED: BENZOCAINE SPRAY 1 CAN TOPICAL ONE (07:20)
[2023-07-01 07:27] LABS: African American GFR (CKD) 49 (>60 ml/min/1.73 sqM); Anion Gap 9 mmol/L; Blood Urea Nitrogen 40 mg/dL (9-20); Calcium 8.7 mg/dL (8.4-10.2); Carbon Dioxide 24 mmol/L (22-30); Chloride 95 mmol/L (98-107); Glucose 166 mg/dL (74-99); Non-African American GFR(CKD) 42 (>60 ml/min/1.73 sqM); Potassium 5.6 mmol/L (3.5-5.1); Sodium 128 mmol/L (137-145)
--- NOTE | 2023-07-01 07:42 | P.PCN ---
Date of Procedure: 07/01/23 Description of Procedure: Indication: Atrial fibrillation Procedure Description: After explaining the procedure to the patient, it's risk and complications, blood pressure, heart rate and O2 saturation were monitored. The throat was sprayed with Cetacaine. Patient received sedation per anesthesia department. The probe was introduced into the esophagus without difficulty. Images were obtained. Following that, the probe was removed. There was no immediate complication. Findings: Left atria size is dilated, left atrial appendage is normal. Left ventricular systolic function is moderately impaired with global hypokinesis, ejection fraction 35-40%. The mitral valve appears to be normal. The aortic valve is bicuspid valve, by planimetry the aortic valve area is 1 cm. The tricuspid valve is normal. Descending thoracic aorta is normal. No pericardial effusion was noted. Contrast bubble study revealed no shunting across the intra-atrial septum Doppler: Pulse wave and color Doppler were obtained, and revealed moderate mitral with [id number] aortic regurgitation and tricuspid regurgitation. The mean gradient across the aortic valve is 10 mmHg. There was no shunting across the intra-atrial septum. Conclusion: 1. Dilated left atrium with normal appearance of the left atrial appendage 2. Moderately impaired left ventricle systolic function 3. Bicuspid aortic valve with a valve area of 1 cm and a mean gradient of 10 mmHg with mild to moderate aortic regurgitation. The patient may have low gradient low output aortic stenosis 4. Moderate mitral regurgitation 5. And [id number] tricuspid regurgitation Cardioversion: After performing transesophageal echocardiogram and obtaining sedated state a synchronized biphasic cardioversion using 150 J was performed with pentecostal of sinus mechanism, there was no immediate complications.
[2023-07-01] MEDS ORDERED: SODIUM CHLORIDE 0.9% 1,000 ML IV SCH (07:45)
[2023-07-01] MEDS ORDERED: Insulin Aspart (For Pump) 100 UNIT/ML VIAL SQ-PUMP SCH (07:45)
[2023-07-01 08:40] VITALS: RESP 14
[2023-07-01 08:56] VITALS: PULSE 88
[2023-07-01] MEDS ORDERED: FUROSEMIDE 20 MG TAB PO SCH (09:00)
[2023-07-01] MEDS ORDERED: METOPROLOL SUCCINATE (ER) 25 MG TAB.ER.24H PO SCH (09:00)
[2023-07-01] MEDS ORDERED: APIXABAN 5 MG TAB PO SCH (09:00)
[2023-07-01] MEDS ORDERED: VERAPAMIL SR 180 MG TABLET.ER PO SCH (09:00)
[2023-07-01] MEDS ORDERED: hydroCHLOROthiazide 25 MG TAB PO SCH (09:00)
[2023-07-01] MEDS ORDERED: NON FORMULARY DRUG (Magnesium [Magnesium] 250 MG Tablet) PO SCH (09:00)
[2023-07-01] MEDS ORDERED: NON FORMULARY DRUG (Cholecalciferol (Vitamin D3) [Vitamin D3] 2,000 UNIT Capsule) PO SCH (09:00)
[2023-07-01] MEDS ORDERED: NON FORMULARY DRUG (Calcium Carbonate [Calcium] 600 MG Tablet) PO SCH (09:00)
[2023-07-01] MEDS ORDERED: NON FORMULARY DRUG (Omeprazole 20 MG Capsule.Dr) PO SCH (09:00)
[2023-07-01] MEDS ORDERED: NON FORMULARY DRUG (Aspirin Ec 81 MG Tablet.Dr) PO SCH (09:00)
[2023-07-01] MEDS ORDERED: PRIMIDONE 50 MG TAB PO SCH (09:00)
[2023-07-01] MEDS ORDERED: ENALAPRIL MALEATE 20 MG PO SCH (09:00)
[2023-07-01] MEDS ORDERED: CARBIDOPA-LEVODOPA 10-100 MG 1 EACH TAB PO SCH (09:00)
[2023-07-01 09:09] VITALS: BP 141/83
[2023-07-01] MEDS ORDERED: hydrALAZINE HCL 50 MG TAB PO SCH (17:30)
[2023-07-01] MEDS ORDERED: ATORVASTATIN 80 MG TAB PO SCH (21:00)
== END 2023-07-01 09:27 | disposition home or self-care (01) ==
LOC: OR 05:40
PROVIDERS: ATTEND Internal Medicine Interventional Cardiology
DX: I34.0 Nonrheumatic mitral (valve) insufficiency (principal); I36.1 Nonrheumatic tricuspid (valve) insufficiency; I35.1 Nonrheumatic aortic (valve) insufficiency; I51.7 Cardiomegaly; E78.2 Mixed hyperlipidemia; I10 Essential (primary) hypertension; I25.10 Atherosclerotic heart disease of native coronary artery without angina pectoris; G20 Parkinson's disease; K21.9 Gastro-esophageal reflux disease without esophagitis; Z87.891 Personal history of nicotine dependence; Z95.1 Presence of aortocoronary bypass graft; E10.9 Type 1 diabetes mellitus without complications; N18.9 Chronic kidney disease, unspecified; Z79.899 Other long term (current) drug therapy; Z98.890 Other specified postprocedural states
CPT/HCPCS: 93312; 93320; 93325; 92960; 80048; J2704; J2001

== ENCOUNTER 2023-12-01 18:05 | Inpatient (IN) | payer MEDICARE ==
[2023-12-01] MEDS ORDERED: SODIUM CHLORIDE 0.9% 1,000 ML IV STA (19:08)
--- NOTE | 2023-12-01 19:09 | ED ---
Recheck HPI - General Chief Complaint: Urogenital Stated Complaint: Bladder issues-sent by Dr Alexander Seen by Provider: 12/01/23 18:15 Source: patient, RN notes reviewed, old records reviewed Mode of arrival: ambulatory Limitations: no limitations - History of Present Illness Initial Comments: This is a 78-year-old male to the emergency room today for evaluation patient was sent in by his primary care for evaluation regarding significant hydronephrosis secondary to likely bladder outlet obstruction, concern for increasing renal failure. Patient relatively is without complaint but he has been having difficulty with urination and did have an outpatient test showing obstruction MD Complaint: abnormal lab, other (Inability urinate with urinary retention) Returns Today for: persistent/worsening pain related to initial visit Symptoms Since Prior Visit: no new symptoms Associated Symptoms: none Treatments Prior to Arrival: other (0) - Related Data Home Medications Medication Instructions Recorded Confirmed Atorvastatin [Lipitor] 80 mg PO HS 08/20/16 12/01/23 Insulin Aspart (For Pump) [NovoLOG 0.01 units SQ-PUMP CONTINUOUS 08/20/16 12/01/23 (For Pump)] Metoprolol Succinate [Toprol XL] 25 mg PO DAILY 08/20/16 12/01/23 Primidone 50 mg PO TID 08/20/16 12/01/23 Aspirin EC [Ecotrin Low Dose] 81 mg PO DAILY 07/03/18 12/01/23 Cholecalciferol (Vitamin D3) 50 mcg PO DAILY 07/03/18 12/01/23 [Vitamin D3] Omeprazole [PriLOSEC] 20 mg PO DAILY 07/03/18 12/01/23 Enalapril Maleate [Vasotec] 20 mg PO BID 05/28/21 12/01/23 Apixaban [Eliquis] 5 mg PO BID 06/23/23 12/01/23 Ascorbic Acid [Vitamin C] 1,000 mg PO DAILY 06/23/23 12/01/23 Carbidopa-Levodopa 10-100 mg 1 tab PO TID 06/23/23 12/01/23 [Sinemet 10-100 mg] hydrALAZINE HCL 50 mg PO BID-W/MEALS 06/23/23 12/01/23 Furosemide [Lasix] 20 mg PO DAILY PRN 08/04/23 12/01/23 hydroCHLOROthiazide 25 mg PO DAILY 08/04/23 12/01/23 Amiodarone [Cordarone] 200 mg PO DAILY 12/01/23 12/01/23 Previous Rx's Medication Instructions Recorded Ferrous Sulfate [Feosol] 325 mg PO DAILY #30 tab 12/03/23 Tamsulosin [Flomax] 0.4 mg PO AC-BRKFST #30 cap 12/03/23 Allergies Allergy/AdvReac Type Severity Reaction Status Date / Time adhesive tape Allergy peels skin Verified 12/01/23 21:31 off Review of Systems ROS Statement: Those systems with pertinent positive or pertinent negative responses have been documented in the HPI. ROS Other: All systems not noted in ROS Statement are negative. Past Medical History Past Medical History: Atrial Fibrillation, Coronary Artery Disease (CAD), Diabetes Mellitus, GERD/Reflux, Hearing Disorder / Deafness, Hypertension, Myocardial Infarction ([place]), Sleep Apnea/CPAP/BIPAP Additional Past Medical History / Comment(s): Parkinsons, [place] X2, insulin pump, CPAP Last Myocardial Infarction Date:: 1992 History of Any Multi-Drug Resistant Organisms: None Reported Past Surgical History: Appendectomy, Coronary Bypass/CABG, Heart Catheterization, Hernia Repair, Tonsillectomy Additional Past Surgical History / Comment(s): CABG 1992, bilateral cataracts, bilateral laser eye surgery, pain clinic procedures. Past Anesthesia/Blood Transfusion Reactions: No Reported Reaction Past Psychological History: No Psychological Hx Reported Smoking Status: Former smoker Past Alcohol Use History: None Reported Past Drug Use History: None Reported - Past Family History Brother(s) Family Medical History: Cancer General Exam Limitations: no limitations General appearance: alert, in no apparent distress, anxious Head exam: Present: atraumatic, normocephalic, normal inspection Eye exam: Present: normal appearance, PERRL, EOMI. Absent: scleral icterus, conjunctival injection, periorbital swelling ENT exam: Present: normal exam, mucous membranes moist Neck exam: Present: normal inspection. Absent: tenderness, meningismus, lymphadenopathy Respiratory exam: Present: normal lung sounds bilaterally. Absent: respiratory distress, wheezes, rales, rhonchi, stridor Cardiovascular Exam: Present: regular rate, normal rhythm, normal heart sounds. Absent: systolic murmur, diastolic murmur, rubs, gallop, clicks GI/Abdominal exam: Present: soft, normal bowel sounds. Absent: distended, tenderness, guarding, rebound, rigid Extremities exam: Present: normal inspection, full ROM, normal capillary refill. Absent: tenderness, pedal edema, joint swelling, calf tenderness Back exam: Present: normal inspection Neurological exam: Present: alert, oriented X3, CN II-XII intact Psychiatric exam: Present: normal affect, normal mood Skin exam: Present: warm, dry, intact, normal color. Absent: rash Course Vital Signs 12/01/23 12/02/23 12/02/23 18:18 06:46 08:09 Temperature 97.6 F 99.7 F H Pulse Rate 67 76 70 Pulse Rate [ Pulse Oximetery ] Respiratory 16 16 18 Rate Blood Pressure 149/68 175/73 175/75 Blood Pressure [Right Arm] O2 Sat by Pulse 98 97 99 Oximetry 12/02/23 12/02/23 12/02/23 11:28 13:59 14:24 Temperature 97.9 F 98.1 F 98.4 F Pulse Rate 60 61 Pulse Rate [ 74 Pulse Oximetery ] Respiratory 18 16 16 Rate Blood Pressure 171/78 147/64 Blood Pressure 175/82 [Right Arm] O2 Sat by Pulse 94 L 100 99 Oximetry - Reevaluation(s) Reevaluation #1: 12/01/23 23:45 Medical records reviewed Reevaluation #2: 12/01/23 23:45 Patient symptoms are unchanged 12/01/23 23:45 Improve with Davis catheter placement Reevaluation #3: 12/01/23 23:45 Patient informed of results and questions answered Reevaluation #4: 12/01/23 23:45 Was pt. sent in by a medical professional or institution (, PA, LEATHER SEASONER, urgent care, hospital, or fdc...) When possible be specific @ -no Did you speak to anyone other than the patient for history (EMS, parent, family, police, friend...)? What history was obtained from this source @ -no Did you review nursing and triage notes (agree or disagree)? Why? @ -agree Are old charts reviewed (outside hosp., previous admission, EMS record, old EKG, old radiological studies, urgent care reports/EKG's, fdc records)? Report findings @ -yes Differential Diagnosis (chest pain, altered mental status, abdominal pain women, abdominal pain men, vaginal bleeding, weakness, fever, dyspnea, syncope, headache, dizziness, GI bleed, back pain, seizure, CVA, palpatations, mental health, musculoskeletal)? @ -prior EKG interpreted by me (3pts min.). @ -yes X-rays interpreted by me (1pt min.). @ -yes CT interpreted by me (1pt min.). @ -no U/S interpreted by me (1pt. min.). @ -no What testing was considered but not performed or refused? (CT, X-rays, U/S, labs)? Why? @ -none What meds were considered but not given or refused? Why? @ -none Did you discuss the management of the patient with other professionals (professionals i.e. DrYuly, PA, LEATHER SEASONER, lab, RT, psych nurse, social science manager, senior marketing coordinator, teacher, digital marketing officer, correctional counselor/case manager)? Give summary @ -no Was smoking cessation discussed for >3mins.? @ -no Was critical care preformed (if so, how long)? @ -no Were there social determinants of health that impacted care today? How? (Homele ssness, low income, unemployed, alcoholism, drug addiction, transportation, low edu. Level, literacy, decrease access to med. care, residential, rehab)? @ -none Was there de-escalation of care discussed even if they declined (Discuss DNR or withdrawal of care, Hospice)? DNR status @ -no What co-morbidities impacted this encounter? (DM, HTN, Smoking, COPD, CAD, Cancer, CVA, ARF, Chemo, Hep., AIDS, mental health diagnosis, sleep apnea, morbid obesity)? @ -none Was patient admitted / discharged? Hospital course, mention meds given and route, prescriptions, significant lab abnormalities, going to OR and other pertinent info. @ - 78 male to the emergency room in today for evaluation of inability urinate. Patient will be admitted for chronic bladder outlet obstruction and significant urinary retention with Davis catheter placed currently. Admitted Undiagnosed new problem with uncertain prognosis? @ -no Drug Therapy requiring intensive monitoring for toxicity (Heparin, Nitro, Insulin, Cardizem)? @ -no Were any procedures done? @ -no Diagnosis/symptom? @ -Urinary retention Acute, or Chronic, or Acute on Chronic? @ -Acute Uncomplicated (without systemic symptoms) or Complicated (systemic symptoms)? @ -Complicated Side effects of treatment? @ -no Exacerbation, Progression, or Severe Exacerbation? @ -exacerbation Poses a threat to life or bodily function? How? (Chest pain, USA, OR, pneumonia, PE, COPD, DKA, ARF, appy, cholecystitis, CVA, Diverticulitis, Homicidal, Suicidal, threat to staff... and all critical care pts) @ -yes Reevaluation #5: 12/01/23 23:45 Differential Abdominal Pain Men: Appendicitis, cholecystitis, diverticulosis, ischemic bowel, pancreatitis, hepatitis, UTI, gastroenteritis, AAA, incarcerated hernia, bowel obstruction, constipation, inflammatory bowel, hepatitis, peptic ulcer disease, splenic infarction, perforated viscus, testicular torsion, this is not meant to be an all-inclusive list - Consultations Consultation #1: Spoke with sound who will admit this patient Medical Decision Making - Medical Decision Making 78 male to the emergency room in today for evaluation of inability urinate. Patient will be admitted for chronic bladder outlet obstruction and significant urinary retention with Davis catheter placed currently. - Lab Data Result diagrams: 12/02/23 05:49 12/02/23 05:49 Lab Results 12/01/23 12/01/23 12/01/23 Range/Units 19:30 19:30 19:30 WBC 6.4 (3.8-10.6) k/uL RBC 4.08 L (4.30-5.90) m/uL Hgb 10.7 L (13.0-17.5) gm/dL Hct 32.5 L (39.0-53.0) % MCV 79.6 L (80.0-100.0) fL MCH 26.1 (25.0-35.0) pg MCHC 32.8 (31.0-37.0) g/dL RDW 16.4 H (11.5-15.5) % Plt Count 403 (150-450) k/uL MPV 7.2 Neutrophils % 69 % Lymphocytes % 15 % Monocytes % 7 % Eosinophils % 5 % Basophils % 1 % Neutrophils # 4.4 (1.3-7.7) k/uL Lymphocytes # 1.0 (1.0-4.8) k/uL Monocytes # 0.5 (0-1.0) k/uL Eosinophils # 0.3 (0-0.7) k/uL Basophils # 0.1 (0-0.2) k/uL Anisocytosis Slight Microcytosis Slight PT 11.1 (10.0-12.5) sec INR 1.0 (<1.2) APTT 26.2 (22.0-30.0) sec Sodium (137-145) mmol/L Potassium (3.5-5.1) mmol/L Chloride (98-107) mmol/L Carbon Dioxide (22-30) mmol/L Anion Gap mmol/L BUN (9-20) mg/dL Creatinine (0.66-1.25) mg/dL Est GFR (CKD-EPI)AfAm (>60 ml/min/1.73 sqM) Est GFR (CKD-EPI)NonAf (>60 ml/min/1.73 sqM) Glucose (74-99) mg/dL Plasma Lactic Acid Srinivasan (0.7-2.0) mmol/L Calcium (8.4-10.2) mg/dL Phosphorus (2.5-4.5) mg/dL Magnesium (1.6-2.3) mg/dL Total Bilirubin (0.2-1.3) mg/dL AST (17-59) U/L ALT (4-49) U/L Alkaline Phosphatase (38-126) U/L Troponin I (0.000-0.034) ng/mL NT-Pro-B Natriuret Pep pg/mL Total Protein (6.3-8.2) g/dL Albumin (3.5-5.0) g/dL Urine Color Colorless Urine Appearance Clear (Clear) Urine pH 7.0 (5.0-8.0) Ur Specific Cullen 1.008 (1.001-1.035) Urine Protein 1+ H (Negative) Urine Glucose (UA) Negative (Negative) Urine Ketones Negative (Negative) Urine Blood Negative (Negative) Urine Nitrite Negative (Negative) Urine Bilirubin Negative (Negative) Urine Urobilinogen <2.0 (<2.0) mg/dL Ur Leukocyte Esterase Negative (Negative) Urine RBC 1 (0-5) /hpf Urine Bacteria Rare H (None) /hpf 12/01/23 12/01/23 12/01/23 Range/Units 19:30 19:30 19:30 WBC (3.8-10.6) k/uL RBC (4.30-5.90) m/uL Hgb (13.0-17.5) gm/dL Hct (39.0-53.0) % MCV (80.0-100.0) fL MCH (25.0-35.0) pg MCHC (31.0-37.0) g/dL RDW (11.5-15.5) % Plt Count (150-450) k/uL MPV Neutrophils % % Lymphocytes % % Monocytes % % Eosinophils % % Basophils % % Neutrophils # (1.3-7.7) k/uL Lymphocytes # (1.0-4.8) k/uL Monocytes # (0-1.0) k/uL Eosinophils # (0-0.7) k/uL Basophils # (0-0.2) k/uL Anisocytosis Microcytosis PT (10.0-12.5) sec INR (<1.2) APTT (22.0-30.0) sec Sodium 133 L (137-145) mmol/L Potassium 4.7 (3.5-5.1) mmol/L Chloride 103 (98-107) mmol/L Carbon Dioxide 23 (22-30) mmol/L Anion Gap 7 mmol/L BUN 27 H (9-20) mg/dL Creatinine 1.30 H (0.66-1.25) mg/dL Est GFR (CKD-EPI)AfAm 61 (>60 ml/min/1.73 sqM) Est GFR (CKD-EPI)NonAf 53 (>60 ml/min/1.73 sqM) Glucose 163 H (74-99) mg/dL Plasma Lactic Acid Srinivasan 0.8 (0.7-2.0) mmol/L Calcium 9.0 (8.4-10.2) mg/dL Phosphorus 3.8 (2.5-4.5) mg/dL Magnesium 1.8 (1.6-2.3) mg/dL Total Bilirubin 0.3 (0.2-1.3) mg/dL AST 25 (17-59) U/L ALT 13 (4-49) U/L Alkaline Phosphatase 129 H (38-126) U/L Troponin I <0.012 (0.000-0.034) ng/mL NT-Pro-B Natriuret Pep 2700 pg/mL Total Protein 6.5 (6.3-8.2) g/dL Albumin 3.6 (3.5-5.0) g/dL Urine Color Urine Appearance (Clear) Urine pH (5.0-8.0) Ur Specific Cullen (1.001-1.035) Urine Protein (Negative) Urine Glucose (UA) (Negative) Urine Ketones (Negative) Urine Blood (Negative) Urine Nitrite (Negative) Urine Bilirubin (Negative) Urine Urobilinogen (<2.0) mg/dL Ur Leukocyte Esterase (Negative) Urine RBC (0-5) /hpf Urine Bacteria (None) /hpf - EKG Data -: EKG Interpreted by Me (EKG sinus 67 MO 250 QRS 161 QTC 461) - Radiology Data Radiology results: report reviewed (CT of the abdomen and pelvis is positive for bilateral hydronephrosis), image reviewed Disposition Clinical Impression: Abdominal pain, Urinary retention, YOVANNY (acute kidney injury), Weakness, Bilateral hydronephrosis Disposition: ADMITTED IP TO THIS [facility] Condition: Stable Is patient prescribed a controlled substance at d/c from ED?: No Time of Disposition: 20:20
[2023-12-01 20:09] LABS: Anisocytosis Slight; Basophils # (A) 0.1 k/uL (0-0.2); Basophils % (A) 1 %; Eosinophils # (A) 0.3 k/uL (0-0.7); Eosinophils % (A) 5 %; HCT 32.5 % (39.0-53.0); HGB 10.7 gm/dL (13.0-17.5); Lymphocytes % (A) 15 %; MCH 26.1 pg (25.0-35.0); MCHC 32.8 g/dL (31.0-37.0); MCV 79.6 fL (80.0-100.0); Mean Platelet Volume 7.2; Microcytosis Slight; Monocytes # (A) 0.5 k/uL (0-1.0); Monocytes % (A) 7 %; Neutrophils # (A) 4.4 k/uL (1.3-7.7); Neutrophils % (A) 69 %; Platelet Count 403 k/uL (150-450); RBC 4.08 m/uL (4.30-5.90); RDW 16.4 % (11.5-15.5); WBC 6.4 k/uL (3.8-10.6)
[2023-12-01 20:20] LABS: ALT 13 U/L (4-49); AST 25 U/L (17-59); African American GFR (CKD) 61 (>60 ml/min/1.73 sqM); Albumin 3.6 g/dL (3.5-5.0); Alkaline Phosphatase 129 U/L (38-126); Anion Gap 7 mmol/L; Blood Urea Nitrogen 27 mg/dL (9-20); Carbon Dioxide 23 mmol/L (22-30); Chloride 103 mmol/L (98-107); Glucose 163 mg/dL (74-99); Magnesium 1.8 mg/dL (1.6-2.3); Non-African American GFR(CKD) 53 (>60 ml/min/1.73 sqM); Partial Thromboplastin Time 26.2 sec (22.0-30.0); Phosphorus 3.8 mg/dL (2.5-4.5); Potassium 4.7 mmol/L (3.5-5.1); Prothrombin Time 11.1 sec (10.0-12.5); Sodium 133 mmol/L (137-145); Total Bilirubin 0.3 mg/dL (0.2-1.3); Total Protein 6.5 g/dL (6.3-8.2)
[2023-12-01 20:28] LABS: NT-Pro-B-Type Natriuretic Pept 2700 pg/mL
[2023-12-01] MEDS ORDERED: NALOXONE 0.4 MG/ML 1 ML VIAL IV PRN (21:06)
[2023-12-01] MEDS ORDERED: MORPHINE SULFATE 4 MG/ML SYRINGE IV PRN (21:06)
[2023-12-01] MEDS ORDERED: LORazepam 0.5 MG TAB PO PRN (21:06)
[2023-12-01] MEDS ORDERED: ONDANSETRON 4 MG/2 ML VIAL IVP PRN (21:06)
[2023-12-01] MEDS: SODIUM CHLORIDE 0.9% 1,000 ML IV SCH (21:23)
[2023-12-01 21:38] LABS: Appearance,Urine Clear (Clear); Bacteria,Urine Rare /hpf; Bilirubin,Urine Negative (Negative); Blood,Urine Negative (Negative); Color,Urine Colorless; Glucose,Urine (UA) Negative (Negative); Ketones,Urine Negative (Negative); Leukocyte Esterase,Urine Negative (Negative); Nitrite,Urine Negative (Negative); Protein,Urine 1+ (Negative); RBC,Urine 1 /hpf (0-5); Specific Gravity,Urine 1.008 (1.001-1.035); Urobilinogen,Urine <2.0 mg/dL (<2.0)
--- NOTE | 2023-12-01 22:01 | CT ---
EXAMINATION TYPE: CT abdomen pelvis wo con CT DLP: 527.6 mGycm, Automated exposure control for dose reduction was used. DATE OF EXAM: 12/01/2023 9:50 PM COMPARISON: None. CLINICAL INDICATION:Male, 78 years old with history of pain; abdominal pain TECHNIQUE: Axial CT abdomen pelvis wo con;Sagittal and coronal reformats were created on a separate workstation. Contrast used: (none if empty) Oral contrast used: without Oral Contrast (none if empty) FINDINGS: LOWER CHEST: There is enlarged for size. Mild gynecomastia changes. Interlobular septal thickening. C oronary artery atherosclerosis. ABDOMEN LIVER: Unremarkable GALLBLADDER AND BILE DUCTS: Unremarkable. PANCREAS: Unremarkable. SPLEEN: Unremarkable. ADRENAL GLANDS: Unremarkable. KIDNEYS AND URETERS: Dilation of the renal collecting systems bilaterally. No evidence for calculus. PELVIS BLADDER: Nondistended with Davis catheter in place. REPRODUCTIVE: Prominent size to 4.4 cm. ABDOMEN & PELVIS STOMACH AND BOWEL: No evidence of bowel obstruction. Large amount stool seen within the colon. Modera te hiatal hernia. PERITONEUM/RETROPERITONEUM: No evidence of pneumoperitoneum or free fluid. VASCULATURE: Moderate atherosclerotic calcifications are present throughout the abdominal aorta and i ts branches. No evidence of aortic aneurysm. MUSCULOSKELETAL: No acute osseous abnormalities. Moderate disc degeneration changes are present throu ghout the thoracolumbar spine. LYMPH NODES: No gross evidence for lymphadenopathy. SOFT TISSUE/ABDOMINAL WALL: Fat-containing left inguinal hernia. IMPRESSION: 1. Davis catheter in place with dilation of the extra renal collecting systems bilaterally.. Correla te for hydronephrosis secondary to chronic bladder outlet obstruction or other acute process in the a bdomen or pelvis. 2. Moderate amount of stool throughout the colon. 3. Moderate hiatal hernia. 4. Cardiomegaly with pulmonary vascular congestion correlate with serum BNP.
--- NOTE | 2023-12-02 02:49 | P.HPIM ---
History of Present Illness H&P Date: 12/01/23 Patient is a 78-year-old male with a PMH of Parkinson's, CAD status post CABG, who presents A. fib on Eliquis, chronic kidney disease, hypertension, type II DM, and hyperlipidemia who was sent to the ED by his PCPs office for urinary retention. Patient reports that he has been experiencing difficulty urinating for the past several years but quickly worsened over the past 6 months. Reports never having seen a urologist. In his PCPs clinic earlier today, patient was noted to have 2 L of urine on a bladder scan. Patient denied experiencing abdominal pain, fever, chills, cough, nausea, vomiting. CT abdomen and pelvis in the emergency room revealed a Davis catheter with bilateral hydronephrosis with a moderate amount of stool and cardiomegaly. EKG revealed sinus rhythm with first-degree AV block at 67 bpm with a left bundle branch block as reviewed by me. Laboratory evaluation was remarkable for Hemoccult and 10.7, MCV 79.6, sodium 133, BUN 27, creatinine 1.3, and troponin less than 0.012. ED documentation reviewed and case discussed with ED provider. Review of systems: Pertinent positives and negatives as discussed in HPI, a complete review of systems was performed and all other systems are negative. Physical examination: Vital signs reviewed General: non toxic, no distress, appears at stated age, overweight Derm: no unusual rashes/lesions, warm Head: atraumatic, normocephalic, symmetric Eyes: EOMI, no lid lag, anicteric sclera, pupils equal round reactive to light ENT: Nose and ears atraumatic Neck: No cervical lymphadenopathy, trachea midline, supple Mouth: no lip lesion, mucus membranes moist Cardiovascular: S1S2 reg, no murmur, positive dorsalis pedis pulse bilateral, no edema Lungs: CTA bilateral, no rhonchi, no rales, no accessory muscle use Abdominal: soft, nontender to palpation, no guarding Ext: muscle strength 5 out of 5 in all 4 extremities grossly, no gross muscle atrophy, no contractures, Neuro: CN II-XI grossly intact, no gross focal neuro deficits Psych: Alert, oriented, appropriate affect Assessment: Urinary obstruction with hydronephrosis, possibly secondary to BPH Microcytic anemia Chronic conditions: COPD, A. fib, CKD, hypertension, type II DM, hyperlipidemia Imaging: CT abdomen and pelvis in the emergency room revealed a Davis catheter with bilateral hydronephrosis with a moderate amount of stool and cardiomegaly. EKG revealed sinus rhythm with first-degree AV block at 67 bpm with a left bundle branch block as reviewed by me. Data Review: Laboratory evaluation was remarkable for Hemoccult and 10.7, MCV 79.6, sodium 13 3, BUN 27, creatinine 1.3, and troponin less than 0.012. Plan: Status post Davis insertion Urology consulted Check anemia panel. Patient will likely need outpatient colonoscopy to rule out GI bleed DVT prophylaxis: Eliquis The patient is admitted with an anticipated greater than 2 midnight stay for evaluation of urinary obstruction CODE STATUS: Full Code Discussed with: Patient Anticipated discharge place: Home Past Medical History Past Medical History: Atrial Fibrillation, Coronary Artery Disease (CAD), Diabetes Mellitus, GERD/Reflux, Hearing Disorder / Deafness, Hypertension, Myocardial Infarction ([place]), Sleep Apnea/CPAP/BIPAP Additional Past Medical History / Comment(s): Parkinsons, [place] X2, insulin pump, CPAP Last Myocardial Infarction Date:: 1992 History of Any Multi-Drug Resistant Organisms: None Reported Past Surgical History: Appendectomy, Coronary Bypass/CABG, Heart Catheterization, Hernia Repair, Tonsillectomy Additional Past Surgical History / Comment(s): CABG 1992, bilateral cataracts, bilateral laser eye surgery, pain clinic procedures. Past Anesthesia/Blood Transfusion Reactions: No Reported Reaction Past Psychological History: No Psychological Hx Reported Smoking Status: Former smoker Past Alcohol Use History: None Reported Past Drug Use History: None Reported - Past Family History Brother(s) Family Medical History: Cancer Medications and Allergies Home Medications Medication Instructions Recorded Confirmed Type Atorvastatin [Lipitor] 80 mg PO HS 08/20/16 12/01/23 History Insulin Aspart (For Pump) [NovoLOG 0.01 units SQ-PUMP CONTINUOUS 08/20/16 12/01/23 History (For Pump)] Metoprolol Succinate [Toprol XL] 25 mg PO DAILY 08/20/16 12/01/23 History Primidone 50 mg PO TID 08/20/16 12/01/23 History Aspirin EC [Ecotrin Low Dose] 81 mg PO DAILY 07/03/18 12/01/23 History Cholecalciferol (Vitamin D3) 50 mcg PO DAILY 07/03/18 12/01/23 History [Vitamin D3] Omeprazole [PriLOSEC] 20 mg PO DAILY 07/03/18 12/01/23 History Enalapril Maleate [Vasotec] 20 mg PO BID 05/28/21 12/01/23 History Apixaban [Eliquis] 5 mg PO BID 06/23/23 12/01/23 History Ascorbic Acid [Vitamin C] 1,000 mg PO DAILY 06/23/23 12/01/23 History Carbidopa-Levodopa 10-100 mg 1 tab PO TID 06/23/23 12/01/23 History [Sinemet 10-100] hydrALAZINE HCL 50 mg PO BID-W/MEALS 06/23/23 12/01/23 History Furosemide [Lasix] 20 mg PO DAILY PRN 08/04/23 12/01/23 History hydroCHLOROthiazide 25 mg PO DAILY 08/04/23 12/01/23 History Amiodarone [Cordarone] 200 mg PO DAILY 12/01/23 12/01/23 History Allergies Allergy/AdvReac Type Severity Reaction Status Date / Time adhesive tape Allergy peels skin Verified 12/01/23 21:31 off Physical Exam Vitals: Vital Signs Temp Pulse Resp BP Pulse Ox 12/01/23 18:18 97.6 F 67 16 149/68 98 Intake and Output 12/01/23 12/01/23 12/02/23 14:59 22:59 06:59 Intake Total 1000 Output Total 1200 Balance -200 Intake: IV 1000 Invasive Line 1 1000 Output: Urine 1200 Uretheral (Davis) 1200 Other: Voiding Method Toilet Weight 82.554 kg Results CBC & Chem 7: 12/01/23 19:30 12/01/23 19:30 Labs: Abnormal Lab Results - Last 24 Hours (Table) 12/01/23 12/01/23 12/01/23 Range/Units 19:30 19:30 19:30 RBC 4.08 L (4.30-5.90) m/uL Hgb 10.7 L (13.0-17.5) gm/dL Hct 32.5 L (39.0-53.0) % MCV 79.6 L (80.0-100.0) fL RDW 16.4 H (11.5-15.5) % Sodium 133 L (137-145) mmol/L BUN 27 H (9-20) mg/dL Creatinine 1.30 H (0.66-1.25) mg/dL Glucose 163 H (74-99) mg/dL Alkaline Phosphatase 129 H (38-126) U/L Urine Protein 1+ H (Negative) Urine Bacteria Rare H (None) /hpf
[2023-12-02 06:07] LABS: Anisocytosis Slight; Basophils % (A) 0 %; Eosinophils # (A) 0.3 k/uL (0-0.7); Eosinophils % (A) 4 %; HCT 33.7 % (39.0-53.0); Hypochromasia Slight; Lymphocytes # (A) 0.6 k/uL (1.0-4.8); Lymphocytes % (A) 6 %; MCH 25.8 pg (25.0-35.0); MCHC 32.6 g/dL (31.0-37.0); MCV 79.2 fL (80.0-100.0); Mean Platelet Volume 7.7; Microcytosis Slight; Monocytes # (A) 0.4 k/uL (0-1.0); Monocytes % (A) 5 %; Neutrophils # (A) 7.2 k/uL (1.3-7.7); Neutrophils % (A) 83 %; Platelet Count 387 k/uL (150-450); RBC 4.25 m/uL (4.30-5.90); RDW 16.5 % (11.5-15.5); WBC 8.7 k/uL (3.8-10.6)
[2023-12-02 06:21] LABS: ALT 21 U/L (4-49); AST 24 U/L (17-59); African American GFR (CKD) 75 (>60 ml/min/1.73 sqM); Albumin 3.4 g/dL (3.5-5.0); Alkaline Phosphatase 118 U/L (38-126); Anion Gap 5 mmol/L; Blood Urea Nitrogen 23 mg/dL (9-20); Calcium 8.7 mg/dL (8.4-10.2); Carbon Dioxide 21 mmol/L (22-30); Chloride 108 mmol/L (98-107); Glucose 107 mg/dL (74-99); Magnesium 1.6 mg/dL (1.6-2.3); Non-African American GFR(CKD) 65 (>60 ml/min/1.73 sqM); Potassium 4.3 mmol/L (3.5-5.1); Sodium 134 mmol/L (137-145); Total Bilirubin 0.4 mg/dL (0.2-1.3); Total Protein 6.3 g/dL (6.3-8.2)
[2023-12-02] MEDS ORDERED: DEXTROSE 50% SYRINGE 50 ML IVP PRN ×2 (09:18)
[2023-12-02] MEDS: hydroCHLOROthiazide 25 MG TAB PO SCH (09:34)
[2023-12-02] MEDS: METOPROLOL SUCCINATE (ER) 25 MG TAB.ER.24H PO SCH (09:34)
[2023-12-02] MEDS: AMIODARONE 200 MG TAB PO SCH (09:34)
[2023-12-02] MEDS: PRIMIDONE 50 MG TAB PO SCH ×3 (09:34→20:05)
[2023-12-02] MEDS: CHOLECALCIFEROL 25 MCG (1000 IU) TABLET PO SCH (09:35)
[2023-12-02] MEDS: ASPIRIN 81 MG PO SCH (09:35)
[2023-12-02] MEDS: lisinopriL 20 MG TAB PO SCH ×2 (09:35→20:05)
[2023-12-02] MEDS: hydrALAZINE HCL 50 MG TAB PO SCH ×2 (09:35→17:17)
[2023-12-02] MEDS: ASCORBIC ACID 500 MG TAB PO SCH (09:36)
[2023-12-02] MEDS: APIXABAN 5 MG TAB PO SCH ×2 (09:36→20:05)
[2023-12-02] MEDS: CARBIDOPA-LEVODOPA 10-100 MG 1 EACH TAB PO SCH ×3 (10:00→20:05)
[2023-12-02] MEDS: PANTOPRAZOLE 40 MG TABLET PO SCH (10:00)
[2023-12-02 10:47] LABS: % Iron Saturation 6.63 (15.00-50.00); Ferritin 19.6 ng/mL (22.0-322.0); Iron 23 UG/DL (65-175); Total Iron Binding Capacity 347 UG/DL (228-460)
[2023-12-02] MEDS: Insulin Aspart (For Pump) 100 UNIT/ML VIAL SQ-PUMP SCH (10:50)
[2023-12-02] MEDS: SODIUM CHLORIDE 0.9% 1,000 ML IV SCH ×2 (12:15→13:34)
[2023-12-02 14:11] VITALS: RESP 16
[2023-12-02] MEDS ORDERED: MAGNESIUM OXIDE 400 MG TAB PO STA (16:06)
--- NOTE | 2023-12-02 16:11 | P.PN ---
Subjective Progress Note Date: 12/02/23 Hospital course: Patient is a very pleasant 78-year-old male with a past medical history of CAD status post CABG, hypertension, hyperlipidemia, paroxysmal atrial fibrillation on anticoagulation with Eliquis, insulin-dependent diabetes mellitus with insulin pump, chronic kidney disease stage IIIB, obstructive sleep apnea CPAP dependent nightly, and Parkinson's disease. He presented to the emergency department on 12/01/23 secondary to complaints of urinary retention. Per documentation in chart, patient was found to have 2 L of urine retained per bladder scan requiring placement of Davis catheter. Vital signs upon arrival to the hospital show blood pressure 149/68, heart rate 67, respiratory rate 16, temp 97.6F, SpO2 of 90% on room air. Labs completed and reviewed. CBC showing normocytic anemia with hemoglobin of 10.7. BMP revealing mild hyponatremia with sodium of 133 and slightly elevated renal function with BUN of 27, creatinine 1.30, and GFR of 53, this appears to be baseline renal functioning for patient. Blood glucose was 163. Magnesium normal findings at 1.8. Liver profile showing slightly elevated alkaline phosphatase of 129 otherwise normal findings. Troponin less than 0.012, and proBNP of 2700. Urinalysis was negative for infe ction. CT abdomen and pelvis without contrast was completed revealing Davis catheter to be in place with dilation of the extrarenal collection system bilaterally consistent with hydronephrosis secondary to chronic bladder outlet obstruction, moderate stool throughout the colon, moderate hiatal hernia, and cardiomegaly with pulmonary vascular congestion. Patient was admitted under our services with consultation to urology. Physical exam: Patient seen and fully evaluated at bedside. Davis catheter in placed to dependent drainage. Documented urinary output of 1200 mL since admission. Patient denies having any pain or complaints at this time. Vital signs reviewed and stable. General: Nontoxic, no distress and appears stated age. Derm: Skin warm and dry, normal coloration for ethnicity. Head: Atraumatic, normocephalic and symmetric. Eyes: EOMs intact, no lid lag, and anicteric sclera Mouth: no lip lesions, mucus membranes moist Cardiovascular: regular rate and rhythm with normal S1S2, systolic murmur, positive posterior tibial pulses bilaterally, and cap refill < 2 seconds. Lungs: Respirations even, regular, and unlabored on room air. Lungs CTA bilaterally, no rhonchi, no rales, no wheezing, and no accessory muscle usage. Abdominal: soft, nontender to palpation, no guarding, no appreciable organomegaly Davis catheter in place. Ext:. No gross muscle atrophy, no edema, no contractures movement and sensation intact.. Neuro: Speech clear, face symmetrical and CN II-XII grossly intact with no noted focal neuro deficits Psych: Alert and oriented to person, place, time, and situation. Appropriate and pleasant affect. Assessment and Plan of Care: Urinary outlet obstruction resulting in significant urinary retention and hydronephrosis likely secondary to BPH Acute kidney injury, improved after IV fluid hydration and placement of Davis catheter to relieve urinary retention Urology consulted, appreciate recommendations. Davis catheter management CAD status post CABG Hypertension Hyperlipidemia Paroxysmal atrial fibrillation, Currently maintaining sinus mechanism Home medications reviewed and reordered. Patient to continue current cardiac medication regimen with amiodarone 200 mg daily, Eliquis 5 mg twice daily, aspirin 81 mg daily, atorvastatin 80 mg nightly, hydralazine 50 mg twice daily with meals, hydrochlorothiazide 25 mg daily, lisinopril 40 mg twice daily, and metoprolol 25 mg daily. Insulin-dependent diabetes mellitus Patient to continue use of personal insulin pump as blood glucose levels seem to be controlled with morning glucose of 107. Orders placed for glycemic protocol with glucose checks 3 times daily before meals and at bedtime. Parkinson's disease Patient to continue primidone 50 mg 3 times daily and carbidopa levodopa 10/100 mg 3 times daily. Provide safe and supportive care with assistance as needed. Data and imaging reviewed: Morning labs reviewed. CBC showing improvement of hyponatremia and renal function with sodium increasing to 134 and renal function showing BUN of 23, creatinine 1.10, and GFR of 65. Vital signs reviewed. Blood pressure 175/75, heart rate 70, respiratory rate 18, temp 99.7F, SpO2 of 99% on room air. . CODE STATUS: Full code DVT prophylaxis: Eliquis Anticipated discharge date: 24-48 hours pending urology evaluation Anticipated discharge place: Home Patient was seen independently by Nurse Pracitioner. This document was prepared using [employer] dictation software. Please allow for errors in assistant women's basketball coach, while rare they do occur. Grant Beal NP rendered care for this patient independently, reviewed the findings and plan as documented in the note above. I did not physically speak with or examine the patient on this date. Objective - Vital Signs Vital signs: Vital Signs Temp 99.7 F H 12/02/23 08:09 Pulse 70 12/02/23 08:09 Resp 18 12/02/23 08:09 BP 175/75 12/02/23 08:09 Pulse Ox 99 12/02/23 08:09 FiO2 Intake & Output 12/01/23 12/02/23 12/02/23 18:59 06:59 18:59 Intake Total 1000 Output Total 1200 Balance -200 Weight 82.554 kg Intake: IV 1000 Invasive Line 1 1000 Output: Urine 1200 Uretheral (Davis) 1200 Other: Voiding Method Toilet - Labs CBC & Chem 7: 12/02/23 05:49 12/02/23 05:49 Labs: Abnormal Lab Results - Last 24 Hours (Table) 12/01/23 12/01/23 12/01/23 Range/Units 19:30 19:30 19:30 RBC 4.08 L (4.30-5.90) m/uL Hgb 10.7 L (13.0-17.5) gm/dL Hct 32.5 L (39.0-53.0) % MCV 79.6 L (80.0-100.0) fL RDW 16.4 H (11.5-15.5) % Lymphocytes # (1.0-4.8) k/uL Sodium 133 L (137-145) mmol/L Chloride (98-107) mmol/L Carbon Dioxide (22-30) mmol/L BUN 27 H (9-20) mg/dL Creatinine 1.30 H (0.66-1.25) mg/dL Glucose 163 H (74-99) mg/dL Alkaline Phosphatase 129 H (38-126) U/L Albumin (3.5-5.0) g/dL Urine Protein 1+ H (Negative) Urine Bacteria Rare H (None) /hpf 12/02/23 12/02/23 Range/Units 05:49 05:49 RBC 4.25 L (4.30-5.90) m/uL Hgb 11.0 L (13.0-17.5) gm/dL Hct 33.7 L (39.0-53.0) % MCV 79.2 L (80.0-100.0) fL RDW 16.5 H (11.5-15.5) % Lymphocytes # 0.6 L (1.0-4.8) k/uL Sodium 134 L (137-145) mmol/L Chloride 108 H (98-107) mmol/L Carbon Dioxide 21 L (22-30) mmol/L BUN 23 H (9-20) mg/dL Creatinine (0.66-1.25) mg/dL Glucose 107 H (74-99) mg/dL Alkaline Phosphatase (38-126) U/L Albumin 3.4 L (3.5-5.0) g/dL Urine Protein (Negative) Urine Bacteria (None) /hpf
[2023-12-02 16:45] LABS: Glucose,Whole Blood 176 mg/dL (70-110)
[2023-12-02 19:59] LABS: Glucose,Whole Blood 187 mg/dL (70-110)
[2023-12-02] MEDS ORDERED: ATORVASTATIN 80 MG TAB PO SCH (21:00)
[2023-12-03 05:58] LABS: Glucose,Whole Blood 126 mg/dL (70-110)
[2023-12-03] MEDS ORDERED: TAMSULOSIN 0.4 MG CAP.ER.24H PO SCH ×2 (08:00→08:30)
[2023-12-03] MEDS: CHOLECALCIFEROL 25 MCG (1000 IU) TABLET PO SCH (08:11)
[2023-12-03] MEDS: ASCORBIC ACID 500 MG TAB PO SCH (08:11)
[2023-12-03] MEDS: hydrALAZINE HCL 50 MG TAB PO SCH (08:12)
[2023-12-03] MEDS: ASPIRIN 81 MG PO SCH (08:12)
[2023-12-03] MEDS: PANTOPRAZOLE 40 MG TABLET PO SCH (08:12)
[2023-12-03] MEDS: CARBIDOPA-LEVODOPA 10-100 MG 1 EACH TAB PO SCH (08:12)
[2023-12-03] MEDS: APIXABAN 5 MG TAB PO SCH (08:12)
[2023-12-03] MEDS: lisinopriL 20 MG TAB PO SCH (08:12)
[2023-12-03] MEDS: AMIODARONE 200 MG TAB PO SCH (08:12)
[2023-12-03] MEDS: METOPROLOL SUCCINATE (ER) 25 MG TAB.ER.24H PO SCH (08:12)
[2023-12-03] MEDS: Insulin Aspart (For Pump) 100 UNIT/ML VIAL SQ-PUMP SCH (08:13)
[2023-12-03] MEDS: hydroCHLOROthiazide 25 MG TAB PO SCH (08:13)
[2023-12-03] MEDS: PRIMIDONE 50 MG TAB PO SCH (08:13)
[2023-12-03 08:48] VITALS: BP 149/75; PULSE 71; TEMP 97.7
[2023-12-03] MEDS ORDERED: SODIUM FERRIC GLUCONAT-SUCROSE 125 MG in SODIUM CHLORIDE 0.9% 100 ML IVPB SCH (09:00)
[2023-12-03 11:31] LABS: Glucose,Whole Blood 225 mg/dL (70-110)
--- NOTE | 2023-12-03 12:20 | P.DS ---
Providers Date of admission: 12/01/23 21:08 Expected date of discharge: 12/03/23 Attending physician: Kenna Kuo MD Consults: 12/01/23 21:06 Consult Physician Routine Consulting Provider: Eder Welch Consult Reason/Comments: retention Do you want consulting provider notified?: Yes Primary care physician: [facility] Course: 78-year-old male with a past medical history of CAD status post CABG, hypertension, hyperlipidemia, paroxysmal atrial fibrillation on anticoagulation with Eliquis, insulin-dependent diabetes mellitus with insulin pump, chronic kidney disease stage IIIB, obstructive sleep apnea CPAP dependent nightly, and Parkinson's disease. He presented to the emergency department on 12/01/23 secondary to complaints of urinary retention. Per documentation in chart, patient was found to have 2 L of urine retained per bladder scan requiring placement of Davis catheter. Vital signs upon arrival to the hospital show blood pressure 149/68, heart rate 67, respiratory rate 16, temp 97.6F, SpO2 of 90% on room air. CBC hemoglobin of 10.7. BMP sodium of 133 and BUN of 27, creatinine 1.30, and GFR of 53. Blood glucose was 163. Liver profile showing alkaline phosphatase of 129. Troponin less than 0.012. proBNP of 2700. Urinalysis was negative for infection. CT abdomen and pelvis without contrast was completed revealing Davis catheter to be in place with dilation of the extrarenal collection system bilaterally consistent with hydronephrosis secondary to chronic bladder outlet obstruction, moderate stool throughout the colon, moderate hiatal hernia, and cardiomegaly with pulmonary vascular congestion. Patient was admitted under our services with consultation to urology. Started on Flomax 0.4 mg PO BID. Iron studies shows Iron 23, Ferritin 19.6. Started on Ferric gluconate 125 mg IV QD. Urology consulted, recommended continuing Davis catheter and outpatient followup. 12/03 Patient was seen and examined. No complaints today. Feeling at baseline. Uoutput 3.26L over the past 24H. Repeat BMP shows improved renal function BUN 23, Cr 1.1, GFR 65. Hopeful plans for discharge home today on Flomax. Follow up with Urology within 1-2 days of discharge. With regard to iron deficiency anemia, started on iron supplements, advised routine cancer screenings including C-scope. Vital signs reviewed and stable. General: Nontoxic, no distress and appears stated age. Derm: Skin warm and dry, normal coloration for ethnicity. Head: Atraumatic, normocephalic and symmetric. Eyes: EOMs intact, no lid lag, and anicteric sclera Mouth: no lip lesions, mucus membranes moist Cardiovascular: regular rate and rhythm with normal S1S2, systolic murmur Lungs: Respirations even, regular, and unlabored on room air. Lungs CTA bilaterally, no rhonchi, no rales, no wheezing, and no accessory muscle usage. Abdominal: soft, nontender to palpation, no guarding, no appreciable organomegaly Davis catheter in place. Ext:. No gross muscle atrophy, no edema, no contractures movement and sensation intact.. Neuro: Speech clear, face symmetrical and no noted focal neuro deficits Psych: Alert and oriented to person, place, time, and situation. Appropriate and pleasant affect. Discharge Diagnosis: Urinary outlet obstruction resulting in significant urinary retention and hydronephrosis likely secondary to BPH Acute kidney injury, improved after IV fluid hydration and placement of Davis catheter to relieve urinary retention Iron deficiency anemia CAD status post CABG Hypertension Hyperlipidemia Paroxysmal atrial fibrillation Insulin-dependent diabetes mellitus Parkinson's disease This complex discharge took 35 minutes to complete. Patient Condition at Discharge: Stable Plan - Discharge Summary Discharge Rx Participant: No New Discharge Prescriptions: New Tamsulosin [Flomax] 0.4 mg PO AC-BRKFST #30 cap Ferrous Sulfate [Feosol] 325 mg PO DAILY #30 tab Continue Primidone 50 mg PO TID Metoprolol Succinate [Toprol XL] 25 mg PO DAILY Atorvastatin [Lipitor] 80 mg PO HS Insulin Aspart (For Pump) [NovoLOG (For Pump)] 0.01 units SQ-PUMP CONTINUOUS Omeprazole [PriLOSEC] 20 mg PO DAILY Cholecalciferol (Vitamin D3) [Vitamin D3] 50 mcg PO DAILY Aspirin EC [Ecotrin Low Dose] 81 mg PO DAILY Enalapril Maleate [Vasotec] 20 mg PO BID hydrALAZINE HCL 50 mg PO BID-W/MEALS Furosemide [Lasix] 20 mg PO DAILY PRN PRN Reason: Edema Carbidopa-Levodopa 10-100 mg [Sinemet 10-100 mg] 1 tab PO TID Apixaban [Eliquis] 5 mg PO BID Ascorbic Acid [Vitamin C] 1,000 mg PO DAILY hydroCHLOROthiazide 25 mg PO DAILY Amiodarone [Cordarone] 200 mg PO DAILY Discharge Medication List Atorvastatin [Lipitor] 80 mg PO HS 08/20/16 [History] Insulin Aspart (For Pump) [NovoLOG (For Pump)] 0.01 units SQ-PUMP CONTINUOUS 08/20/16 [History] Metoprolol Succinate [Toprol XL] 25 mg PO DAILY 08/20/16 [History] Primidone 50 mg PO TID 08/20/16 [History] Aspirin EC [Ecotrin Low Dose] 81 mg PO DAILY 07/03/18 [History] Cholecalciferol (Vitamin D3) [Vitamin D3] 50 mcg PO DAILY 07/03/18 [History] Omeprazole [PriLOSEC] 20 mg PO DAILY 07/03/18 [History] Enalapril Maleate [Vasotec] 20 mg PO BID 05/28/21 [History] Apixaban [Eliquis] 5 mg PO BID 06/23/23 [History] Ascorbic Acid [Vitamin C] 1,000 mg PO DAILY 06/23/23 [History] Carbidopa-Levodopa 10-100 mg [Sinemet 10-100 mg] 1 tab PO TID 06/23/23 [History] hydrALAZINE HCL 50 mg PO BID-W/MEALS 06/23/23 [History] Furosemide [Lasix] 20 mg PO DAILY PRN 08/04/23 [History] hydroCHLOROthiazide 25 mg PO DAILY 08/04/23 [History] Amiodarone [Cordarone] 200 mg PO DAILY 12/01/23 [History] Ferrous Sulfate [Feosol] 325 mg PO DAILY #30 tab 12/03/23 [Rx] Tamsulosin [Flomax] 0.4 mg PO AC-BRKFST #30 cap 12/03/23 [Rx] Follow up Appointment(s)/Referral(s): Eder Welch MD [STAFF PHYSICIAN] - 3 Days Santiago Vora DO [Primary Care Provider] - 1-2 days Patient Instructions/Handouts: Urinary Retention in Men (GEN), Davis Catheter Placement and Care (DC), Urinary Leg Bag (GEN), How to Change a Catheter Drainage Bag (DC) Discharge Disposition: HOME SELF-CARE
--- NOTE | 2023-12-03 12:28 | P.GSCN ---
History of Present Illness Consult date: 12/03/23 Reason for Consult: Urinary retention Requesting physician: Kenna Kuo History of present illness: The patient is a 78-year-old white male with multiple medical problems, including Parkinson's disease, A. fib, coronary artery disease, CKD, hypertension, type 2 diabetes mellitus, and hyperlipidemia. He has experienced progressive difficulty voiding for the past year. He was found to be in urinary retention and a Davis catheter was placed. Review of the records suggest that at least 1200 mL of urine was drained from the bladder at the time of Davis catheter placement. A CT scan was obtained following catheter placement, showing bilateral hydronephrosis. Interestingly, the patient denies dysuria, hematuria, urinary frequency, nocturia, and urinary incontinence. However, he does report double voiding in the morning and generalized difficulty voiding. His urologic history is otherwise unremarkable. Review of Systems - Constitutional Denies chills, Denies fever - Gastrointestinal Denies nausea, Denies vomiting - Genitourinary Reports as per HPI Past Medical History Past Medical History: Atrial Fibrillation, Coronary Artery Disease (CAD), Diabetes Mellitus, GERD/Reflux, Hearing Disorder / Deafness, Hypertension, Myocardial Infarction ([place]), Sleep Apnea/CPAP/BIPAP Additional Past Medical History / Comment(s): Parkinsons, [place] X2, insulin pump, CPAP Last Myocardial Infarction Date:: 1992 History of Any Multi-Drug Resistant Organisms: None Reported Past Surgical History: Appendectomy, Coronary Bypass/CABG, Heart Catheterization, Hernia Repair, Tonsillectomy Additional Past Surgical History / Comment(s): CABG 1992, bilateral cataracts, bilateral laser eye surgery, pain clinic procedures. Past Anesthesia/Blood Transfusion Reactions: No Reported Reaction Past Psychological History: No Psychological Hx Reported Smoking Status: Former smoker Past Alcohol Use History: None Reported Additional Past Alcohol Use History / Comment(s): Quit smoking 30 yrs ago, started smoking at age 18, up to 3 PPD. Past Drug Use History: None Reported Additional Drug Use History / Comment(s): CBD gummies in the past, but no longer - Past Family History Brother(s) Family Medical History: Cancer Medications and Allergies Home Medications Medication Instructions Recorded Confirmed Type Atorvastatin [Lipitor] 80 mg PO HS 08/20/16 12/01/23 History Insulin Aspart (For Pump) [NovoLOG 0.01 units SQ-PUMP CONTINUOUS 08/20/16 12/01/23 History (For Pump)] Metoprolol Succinate [Toprol XL] 25 mg PO DAILY 08/20/16 12/01/23 History Primidone 50 mg PO TID 08/20/16 12/01/23 History Aspirin EC [Ecotrin Low Dose] 81 mg PO DAILY 07/03/18 12/01/23 History Cholecalciferol (Vitamin D3) 50 mcg PO DAILY 07/03/18 12/01/23 History [Vitamin D3] Omeprazole [PriLOSEC] 20 mg PO DAILY 07/03/18 12/01/23 History Enalapril Maleate [Vasotec] 20 mg PO BID 05/28/21 12/01/23 History Apixaban [Eliquis] 5 mg PO BID 06/23/23 12/01/23 History Ascorbic Acid [Vitamin C] 1,000 mg PO DAILY 06/23/23 12/01/23 History Carbidopa-Levodopa 10-100 mg 1 tab PO TID 06/23/23 12/01/23 History [Sinemet 10-100 mg] hydrALAZINE HCL 50 mg PO BID-W/MEALS 06/23/23 12/01/23 History Furosemide [Lasix] 20 mg PO DAILY PRN 08/04/23 12/01/23 History hydroCHLOROthiazide 25 mg PO DAILY 08/04/23 12/01/23 History Amiodarone [Cordarone] 200 mg PO DAILY 12/01/23 12/01/23 History Ferrous Sulfate [Feosol] 325 mg PO DAILY #30 tab 12/03/23 Rx Tamsulosin [Flomax] 0.4 mg PO AC-BRKFST #30 cap 12/03/23 Rx Allergies Allergy/AdvReac Type Severity Reaction Status Date / Time adhesive tape Allergy peels skin Verified 12/01/23 21:31 off Surgical - Exam Vital Signs Temp Pulse Resp BP Pulse Ox 97.6 F 67 16 149/68 98 12/01/23 18:18 12/01/23 18:18 12/01/23 18:18 12/01/23 18:18 12/01/23 18:18 - General well developed, well nourished, no distress - Respiratory normal respiratory effort - Genitourinary normal penis with no external lesions, testicles non-tender - Rectum Rectum: normal sphincter tone, no masses, other (Prostate 40-50 g in size, sm ooth in consistency) - Psychiatric oriented to time, oriented to person, oriented to place, speech is normal, memory intact Results - Labs 12/02/23 05:49 12/02/23 05:49 Abnormal Lab Results - Last 24 Hours (Table) 12/01/23 12/01/23 12/01/23 Range/Units 19:30 19:30 19:30 RBC 4.08 L (4.30-5.90) m/uL Hgb 10.7 L (13.0-17.5) gm/dL Hct 32.5 L (39.0-53.0) % MCV 79.6 L (80.0-100.0) fL RDW 16.4 H (11.5-15.5) % Lymphocytes # (1.0-4.8) k/uL Sodium 133 L (137-145) mmol/L Chloride (98-107) mmol/L Carbon Dioxide (22-30) mmol/L BUN 27 H (9-20) mg/dL Creatinine 1.30 H (0.66-1.25) mg/dL Glucose 163 H (74-99) mg/dL Iron (65-175) UG/DL % Saturation (15.00-50.00) Ferritin (22.0-322.0) ng/mL Alkaline Phosphatase 129 H (38-126) U/L Albumin (3.5-5.0) g/dL Urine Protein 1+ H (Negative) Urine Bacteria Rare H (None) /hpf 12/02/23 12/02/23 Range/Units 05:49 05:49 RBC 4.25 L (4.30-5.90) m/uL Hgb 11.0 L (13.0-17.5) gm/dL Hct 33.7 L (39.0-53.0) % MCV 79.2 L (80.0-100.0) fL RDW 16.5 H (11.5-15.5) % Lymphocytes # 0.6 L (1.0-4.8) k/uL Sodium 134 L (137-145) mmol/L Chloride 108 H (98-107) mmol/L Carbon Dioxide 21 L (22-30) mmol/L BUN 23 H (9-20) mg/dL Creatinine (0.66-1.25) mg/dL Glucose 107 H (74-99) mg/dL Iron 23 L (65-175) UG/DL % Saturation 6.63 L (15.00-50.00) Ferritin 19.6 L (22.0-322.0) ng/mL Alkaline Phosphatase (38-126) U/L Albumin 3.4 L (3.5-5.0) g/dL Urine Protein (Negative) Urine Bacteria (None) /hpf Diabetes panel 12/01/23 12/02/23 Range/Units 19:30 05:49 Sodium 133 L 134 L (137-145) mmol/L Potassium 4.7 4.3 (3.5-5.1) mmol/L Chloride 103 108 H (98-107) mmol/L Carbon Dioxide 23 21 L (22-30) mmol/L BUN 27 H 23 H (9-20) mg/dL Creatinine 1.30 H 1.10 (0.66-1.25) mg/dL Glucose 163 H 107 H (74-99) mg/dL Calcium 9.0 8.7 (8.4-10.2) mg/dL AST 25 24 (17-59) U/L ALT 13 21 (4-49) U/L Alkaline Phosphatase 129 H 118 (38-126) U/L Total Protein 6.5 6.3 (6.3-8.2) g/dL Albumin 3.6 3.4 L (3.5-5.0) g/dL Calcium panel 12/01/23 12/02/23 Range/Units 19:30 05:49 Calcium 9.0 8.7 (8.4-10.2) mg/dL Phosphorus 3.8 4.0 (2.5-4.5) mg/dL Albumin 3.6 3.4 L (3.5-5.0) g/dL Pituitary panel 12/01/23 12/02/23 Range/Units 19:30 05:49 Sodium 133 L 134 L (137-145) mmol/L Potassium 4.7 4.3 (3.5-5.1) mmol/L Chloride 103 108 H (98-107) mmol/L Carbon Dioxide 23 21 L (22-30) mmol/L BUN 27 H 23 H (9-20) mg/dL Creatinine 1.30 H 1.10 (0.66-1.25) mg/dL Glucose 163 H 107 H (74-99) mg/dL Calcium 9.0 8.7 (8.4-10.2) mg/dL Adrenal panel 12/01/23 12/02/23 Range/Units 19:30 05:49 Sodium 133 L 134 L (137-145) mmol/L Potassium 4.7 4.3 (3.5-5.1) mmol/L Chloride 103 108 H (98-107) mmol/L Carbon Dioxide 23 21 L (22-30) mmol/L BUN 27 H 23 H (9-20) mg/dL Creatinine 1.30 H 1.10 (0.66-1.25) mg/dL Glucose 163 H 107 H (74-99) mg/dL Calcium 9.0 8.7 (8.4-10.2) mg/dL Total Bilirubin 0.3 0.4 (0.2-1.3) mg/dL AST 25 24 (17-59) U/L ALT 13 21 (4-49) U/L Alkaline Phosphatase 129 H 118 (38-126) U/L Total Protein 6.5 6.3 (6.3-8.2) g/dL Albumin 3.6 3.4 L (3.5-5.0) g/dL - Imaging CT scan - abdomen: report reviewed, image reviewed Assessment and Plan (1) Bilateral hydronephrosis Current Visit: Yes Status: Acute Code(s): N13.30 - UNSPECIFIED HYDRONEPHROSIS SNOMED Code(s): 16914161 (2) Urinary retention Current Visit: Yes Status: Acute Code(s): R33.9 - RETENTION OF URINE, UNSPECIFIED SNOMED Code(s): 464889644 Plan: I had a lengthy discussion with the patient regarding his urinary retention, and the fact that it resulted in hydronephrosis. I have suggested that he be discharged home with an indwelling Davis catheter for continued bladder drainage, to allow his bladder the opportunity to rest and regain tone. Arrangements will be made for him to undergo urodynamic testing and cystoscopy in the office in 2 weeks. Please notify me if I can be of any further assistance. Time with Patient: Greater than 30
== END 2023-12-03 16:38 | disposition home or self-care (01) | DRG 726 ==
LOC: EC 18:05 → 5NMEDONC 21:08 → 1SOBS 12-02 13:48
PROVIDERS: ADMIT Internal Medicine; ATTEND Internal Medicine
DX: N40.1 Benign prostatic hyperplasia with lower urinary tract symptoms (principal); N13.30 Unspecified hydronephrosis; N13.8 Other obstructive and reflux uropathy; E87.1 Hypo-osmolality and hyponatremia; N17.9 Acute kidney failure, unspecified; I25.10 Atherosclerotic heart disease of native coronary artery without angina pectoris; E78.5 Hyperlipidemia, unspecified; R33.8 Other retention of urine; I48.0 Paroxysmal atrial fibrillation; E11.22 Type 2 diabetes mellitus with diabetic chronic kidney disease; I13.10 Hypertensive heart and chronic kidney disease without heart failure, with stage 1 through stage 4 chronic kidney disease, or unspecified chronic kidney disease; N18.32 Chronic kidney disease, stage 3b; K44.9 Diaphragmatic hernia without obstruction or gangrene; J44.9 Chronic obstructive pulmonary disease, unspecified; I44.7 Left bundle-branch block, unspecified; I44.0 Atrioventricular block, first degree; K21.9 Gastro-esophageal reflux disease without esophagitis; H91.90 Unspecified hearing loss, unspecified ear; G20.A1 Parkinson's disease without dyskinesia, without mention of fluctuations; D50.9 Iron deficiency anemia, unspecified; Z96.41 Presence of insulin pump (external) (internal); I25.2 Old myocardial infarction; Z95.1 Presence of aortocoronary bypass graft; Z79.01 Long term (current) use of anticoagulants; Z79.4 Long term (current) use of insulin; Z87.891 Personal history of nicotine dependence; Z79.899 Other long term (current) drug therapy; Z79.82 Long term (current) use of aspirin
CPT/HCPCS: 36415; 51702; 51798; 74176; 80053; 81001; 82728; 82747; 83540; 83550; 83605; 83735; 83880; 84100; 84484; 85025; 85045; 85610; 85730; 93005; 96360; 96361; 99285

== ENCOUNTER → 2023-12-01 | Outpatient (CLI) | payer MEDICARE ==
--- NOTE | 2023-12-01 10:11 | US ---
EXAMINATION TYPE: US abdomen complete DATE OF EXAM: 12/01/2023 COMPARISON: NONE CLINICAL INDICATION: Male, 78 years old with history of R74.8 ABNORMAL LEVELS OF OTHER SERUM ENZYME N 18.30; Hx CKD, DM, HTN, appendectomy, and recent hernia repair. Constipation x few years, Low urine o utput x 6 months TECHNIQUE: Multiple sonographic images of the abdomen are obtained. FINDINGS: EXAM MEASUREMENTS: Liver Length: 14.6 cm Gallbladder Wall: 0.1 cm CBD: 0.3 cm Spleen: 11.4 cm Right Kidney: 15.4 x 9.4 x 10.5 cm Left Kidney: 12.4 x 6.5 x 4.6 cm [employer] NOTES: Difficult exam due to extensive bowel gas Pancreas: Obscured by bowel gas Liver: Limited visualization Gallbladder: wnl Evidence for sonographic Kendrick's sign: No CBD: wnl Spleen: wnl Right Kidney: Severe hydronephrosis Left Kidney: Severe hydronephrosis Upper IVC: Obscured by overlying bowel gas Abd Aorta: Obscured by overlying bowel gas Bladder scanned due to findings within kidneys; post void residual bladder volume of 1000 mL IMPRESSION: There is an abnormal post void bladder volume of a liter and severe bilateral hydronephrosis. Correla te for bladder outlet obstruction and secondary hydronephrosis.
== END | disposition home or self-care (01) ==
LOC: RADUSWWP 06:55
PROVIDERS: ATTEND Internal Medicine
DX: N13.30 Unspecified hydronephrosis (principal); R33.9 Retention of urine, unspecified; N18.30 Chronic kidney disease, stage 3 unspecified; R74.8 Abnormal levels of other serum enzymes; I12.9 Hypertensive chronic kidney disease with stage 1 through stage 4 chronic kidney disease, or unspecified chronic kidney disease; E11.22 Type 2 diabetes mellitus with diabetic chronic kidney disease; Z90.49 Acquired absence of other specified parts of digestive tract
CPT/HCPCS: 76700

== ENCOUNTER → 2024-02-23 | Outpatient (CLI) | payer MEDICARE ==
--- NOTE | 2024-02-23 21:12 | MR ---
EXAMINATION TYPE: MR lumbar spine wo con DATE OF EXAM: 02/23/2024 COMPARISON: 01/18/2021 HISTORY: Low back pain that radiates down left side. TECHNIQUE: Multiplanar, multisequence images of the lumbar spine were acquired without IV contrast. Findings: The lumbar vertebral segments are normal in height and alignment and there is no fracture or subluxat ion. There is moderate to severe degenerative disease at the L3-4 level where there is moderate to severe disc space narrowing, loss of signal intensity, circumferential disc bulge, hypertrophic spurring and discogenic endplate changes. There is mild disc space narrowing and circumferential disc bulge at th e L1-2 and L2-3 levels indicating mild degenerative disease. L4-5 and L5-S1 disc spaces are well-main tained in height but there is loss of signal intensity and sequential disc bulge indicating mild dege nerative disease. There is a small to moderate broad-based disc protrusion of the L4-5 disc posteriorly and in combina tion with moderate facet hypertrophy and thickening of ligamentum flavum, there is a moderate spinal stenosis.. There is a moderate broad-based disc protrusion/herniation of the L5-S1 disc posteriorly slightly gre ater to the right of midline. In combination with marked facet hypertrophy and thickening ligamentum flavum, there is a moderate spinal stenosis. At the L3-4 level secondary to marked facet hypertrophy and thickening ligamentum flavum and disc bulge there is a moderate to severe spinal stenosis. There is mild buckling of the nerve roots below the level of the L3-4 disc space secondary to the mod erate to severe L3-4 spinal stenosis. There is moderate neural foraminal stenosis at the L3-4 level bilaterally. There is moderate to sever e neuroforaminal stenosis at the L5-S1 level on the left. The visualized sacrum and SI joints are normal. Compared to the prior study, there is been significant interval worsening in the degree of degenerati ve disc disease at the L3-4 level and worsening in the disc protrusion and spinal stenosis at the L4- 5 level. IMPRESSION: 1. Multilevel degenerative disease as described above. 2. Disc protrusions/herniations at the L4-5 and L5-S1 disks. 3. Spinal stenosis at the L3-4, L4-5 and L5-S1 levels severe at the L3-4 level. 4. Bilateral neural foraminal stenosis at the L3-4 level and at the L5-S1 level on the left 5. Interval worsening in the degenerative disc disease and spinal stenosis as described above.
== END | disposition home or self-care (01) ==
LOC: RADMRIMAIN 19:45
PROVIDERS: ATTEND Internal Medicine
DX: M51.36 Other intervertebral disc degeneration, lumbar region (principal); M51.26 Other intervertebral disc displacement, lumbar region; M99.73 Connective tissue and disc stenosis of intervertebral foramina of lumbar region
CPT/HCPCS: 72148

== ENCOUNTER → 2024-03-30 | Outpatient (CLI) | payer MEDICARE ==
--- NOTE | 2024-04-01 09:17 | US ---
EXAMINATION TYPE: US kidneys/renal and bladder DATE OF EXAM: 03/30/2024 COMPARISON: 12/01/2023 CLINICAL INDICATION: Male, 79 years old with history of N13.30 UNSPECIFIED HYDRONEPHROSIS; h/o hydron ephrosis, patient now has to self cath, no symptoms today EXAM MEASUREMENTS: Right Kidney: 11.2 x 4.2 x 4.4 cm Left Kidney: 9.7 x 4.4 x 4.8 cm Right Kidney: No hydronephrosis or masses seen Left Kidney: No hydronephrosis or masses seen Bladder: distended with mobile sediment an dependant sludge, wall thickness = 0.9cm Bilateral Jets seen: no There is no evidence for hydronephrosis at this point in time. No nephrolithiasis is seen. No jb s are identified. Bilateral ureteral jets are seen. IMPRESSION: Dependent mobile sludge within the urinary bladder with mild wall thickening.
== END | disposition home or self-care (01) ==
LOC: RADUSWWP 14:03
PROVIDERS: ATTEND Urology
DX: N13.30 Unspecified hydronephrosis (principal); D64.9 Anemia, unspecified; N32.89 Other specified disorders of bladder
CPT/HCPCS: 76770

== ENCOUNTER 2024-05-14 07:34 | Day surgery (SDC) | payer MEDICARE ==
[2024-05-12 09:08] VITALS: BMI 23.8
[2024-05-14 08:08] VITALS: RESP 16; TEMP 97.8
[2024-05-14] MEDS: LACTATED RINGERS 1,000 ML IV SCH (08:08)
[2024-05-14 08:19] LABS: Glucose,Whole Blood 91 mg/dL (70-110)
[2024-05-14] MEDS ORDERED: PROPOFOL 10 MG/ML 20 ML VIAL IV ONE (08:38)
--- NOTE | 2024-05-14 09:02 | P.PCN ---
Date of Procedure: 05/14/24 Procedure(s) Performed: Brief history: Patient is a pleasant 79-year-old white male scheduled for an elective upper endoscopy as well as colonoscopy as a part of evaluation of iron deficiency anemia. He denies any GI symptoms. Patient has history of A-fib and has been on Eliquis which is on hold for the last 2 days. Procedure performed: Esophagogastroduodenoscopy with biopsy Colonoscopy Preoperative diagnosis: Iron deficiency anemia Anesthesia: MAC Procedure: After informed consent was obtained from the patient was brought into the endoscopy unit and IV sedation was administered by anesthesia under continuous monitoring. Initially upper endoscopy was done. The Olympus GF 160 video endoscope was inserted inserted into the mouth and esophagus intubated without any difficulty and was gradually advanced into the stomach and duodenum and carefully examined. The bulb and second part of the duodenum appeared normal. Biopsies were done from the duodenum for celiac disease. The scope was then withdrawn into the stomach adequately insufflated with air and upon careful examination the antrum and mild antral gastritis and biopsies were done from this area. Mucosa of the body, cardia and fundus appeared normal. The scope was then withdrawn into the esophagus. The GE junction was located at 40 cm to the incisors. It appeared regular with no erythema erosions or ulcerations. Rest of the esophagus appeared normal. Patient tolerated the procedure well. At this time the patient continued to remain sedation. Initial digital rectal examination was normal. Olympus CF 160 video colonoscope was then inserted into the rectum and gradually advanced to the cecum without any difficulty. Careful examination was performed as the scope was gradually being withdrawn. The prep was excellent. The cecum, ascending colon, transverse colon, descending colon, sigmoid colon and rectum appeared normal. Retroflexion was performed in the rectum and no lesions were noted. Scattered sigmoid diverticulosis patient tolerated the procedure well. Impression: 1. Upper endoscopy revealed mild antral gastritis, multiple small gastric polyps and small hiatal hernia 2. Colonoscopy revealed scattered sigmoid diverticulosis but no evidence of colorectal neoplasia Recommendations: Findings of this examination were discussed with the patient as well as his family. He was advised to follow-up the biopsy results. Resume Eliquis today. Continue the high-fiber diet and fiber supplements on a regular basis
[2024-05-14 09:15] LABS: Glucose,Whole Blood 82 mg/dL (70-110)
[2024-05-14 09:24] VITALS: BP 141/65; PULSE 63
== END 2024-05-14 09:42 | disposition home or self-care (01) ==
LOC: ORWHC2ENDO 07:34
PROVIDERS: ATTEND Internal Medicine Gastroenterology
DX: K29.50 Unspecified chronic gastritis without bleeding (principal); D50.9 Iron deficiency anemia, unspecified; I48.91 Unspecified atrial fibrillation; K31.7 Polyp of stomach and duodenum; K44.9 Diaphragmatic hernia without obstruction or gangrene; K57.30 Diverticulosis of large intestine without perforation or abscess without bleeding; Z79.01 Long term (current) use of anticoagulants; Z79.899 Other long term (current) drug therapy
CPT/HCPCS: 88305; 88342; 45378; 43239; J2704